=== PATIENT | female | born 1995 | race African-American/Black ===

== ENCOUNTER 2019-12-30 13:10 | Outpatient (CLI) | payer OTHER ==
[2019-12-30 14:00] VITALS: BP 112/58
--- NOTE | 2019-12-30 14:00 | SLEEP CARE CONSULTATION ---
Information from patient questionnaire entered by Ellie Salazar. I have reviewed and concur with the information entered by Ellie Salazar. This document represents the service I personally performed and the decisions made by , Archana Sullivan ARNP. History of Present Illness Service Date and Time: 12/30/2019 1310 Reason for Visit: New patient Chief Complaint: reports: Unrefreshed sleep, Snoring, Excessive daytime sleepiness, Observed pauses in breathing, Fatigue. denies: Insomnia, Frequent awakenings at night, Other Date of Onset: 5 years Usual bedtime: 9 PM Time it takes to fall asleep: 1 hour Snores at night: Yes Observed to quit breathing while asleep: Yes Sleeps alone due to snoring: No Number of times waking at night: 2 Reasons for waking at night: reports: Snoring, Bathroom. denies: Choking, Gasping for air Toss, Turn, or Twitch while sleeping: Yes Recalls having dreams: Yes Usually gets out of bed at: [id number] Feels refreshed in the morning: No Morning headache: No Sleepy or fatigued during the day: Yes Additional HPI information: I had the pleasure of seeing IVAN DENG today regarding the possibility of her having a sleep disorder. Her current complaints are snoring, unrefreshed sleep, having pauses in breathing, excessive daytime sleepiness and fatigue. She is 7 months at this time. She has had anemia during the . She has a history of anxiety and depression. There is somniloquy (sleep talking) but no somnambulism (sleep walking). She has never experienced sleep paralysis, cataplexy, or symptoms of restless leg syndrome. - Parasomnia Symptoms Ever been unable to move upon waking from sleep: No Walks in sleep: No Talks in sleep: Yes Ever acted out dreams in sleep: Yes Ever felt weak in the knees when startled or emotional: No Bothered by creepy, crawly, restless sensations in legs: No Problems with memory or concentration: Yes (daily) Subjective Initial Fielding Sleepiness Scale score: 16 Past Medical History Past Medical History: reports: Anemia ( induced), Anxiety, Asthma (seasonal), Depression, Mood disorder (borderline personality disorder), GERD (acid reflux depending on diet). denies: Hypertension, Claustrophobia, Congestive Heart Failure, Diabetes, Stroke, Coronary Heart Disease, Arrythmia, Hypothyroidism, Attention deficit Social History The patient's occupation is a [employer]. Patient is and lives in . Have you smoked in the past 12 months: No Alcohol use: No Caffeine use: Yes Caffeine amount and frequency: tea, two cups a day Family History Family history of sleep disordered breathing: No Allergies and Home Medications Drug allergies reviewed: Yes (NKDA) Home medication list reviewed: Yes ( vitamins, iron supplements, flonase, loratidine) Review of Systems Cardiovascular: denies: high blood pressure, palpitations, chest pain, irregular heart rate or pulse, leg or foot swelling Respiratory: denies: shortness of breath, wheeze, chronic cough Gastrointestinal: reports: heartburn. denies: difficulty swallowing Neurological: denies: headaches, seizure, head trauma, speech dysfunction, gait or balance problems, fainting or unconsciousness Psychiatric: reports: anxiety, depression, mood disorder. denies: Attention Def icit Hyperactivity, claustrophobia Ear/Nose/Throat: reports: nasal congestion, sinus problems. denies: nose bleeds, dry mouth/throat, hoarseness, injury to nose, tonsillectomy, wisdom teeth removed Endocrine: denies: thyroid disease Musculoskeletal: denies: muscle pain or cramping, mobility problems Immunologic: reports: allergies to food or environment (seasonal) Physical Exam Blood Pressure: 112/58 Cuff size: long Heart Rate: 110 O2 Saturation: 99 Height: 5 ft 4 in Weight: 225 lb 9.6 oz Body Mass Index: 38.7 BMI Classification: Obese Neck circumference: 14 (inches) HEENT: No craniofacial malformation Nostrils: patent to airflow Turbinates: swollen Septum: midline Mouth and throat: normal Soft palate: normal Hard palate: normal Uvula: normal Uvula visualization: 100% Mallampati Class I Tongue: normal in size Tonsils: small Chin and jaw: normal size and position Neck: normal w/o lymphadenopathy or thyromegaly Heart: regular rate and rhythm Lungs: clear bilaterally Abdomen: soft, non-tender Extremities: no edema or clubbing Neurologic: intact, no focal deficits Impression and Plan 1. Suspected Obstructive Sleep Apnea-Hypopnea Syndrome, as suggested by a history of loud and irregular snoring, observed cessation of breath while asleep, fatigue, unrefreshed sleep, cognitive impairment, and excessive daytime sleepiness. Narrow oropharynx and obesity are common predisposing factors for obstructive sleep apnea-hypopnea syndrome. I recommend proceeding to polysomnography to confirm the diagnosis and to assess severity. If the patient has significant sleep disordered breathing, a manual CPAP titration study will also be performed to find the optimal treatment pressure. I informed the patient of what the sleep studies involve and after some discussion, obtained agreement to proceed. The pathophysiology of obstructive sleep apnea-hypopnea syndrome was discussed with the patient and health risks of cardiovascular and cerebrovascular disease if not treated. AAS brochure for obstructive sleep apnea-hypopnea syndrome given and reviewed. Risks of drowsy driving discussed in detail and patient advised to avoid long distance driving and to manager discovery at the first sign of drowsiness. Patient agreed to plan. * Schedule polysomnography +- manual CPAP titration study. * Avoid long distance driving or driving when feeling sleepy. * Avoid sedative and muscle relaxant around bedtime. * Attempt to lose weight. * Review instructions provided by trained office staff on how to prepare for the sleep study. * Return for follow-up after sleep study completed. Visit Type: In Office Time Spent with Patient (minutes): 35 Provider Statement: I spent 100% of the Face to Face Visit with the patient with greater than 50% spent counseling the patient and coordination of care.
== END 2019-12-30 13:11 | disposition home or self-care (01) ==
LOC: SC 13:10
PROVIDERS: ATTEND Nurse Practitioner Family
DX: O99.350 Diseases of the nervous system complicating pregnancy, unspecified trimester (principal); G47.10 Hypersomnia, unspecified; G47.8 Other sleep disorders; R06.83 Snoring; R06.81 Apnea, not elsewhere classified; E66.9 Obesity, unspecified
CPT/HCPCS: 99204; 99212

== ENCOUNTER 2020-01-21 19:32 | Outpatient (CLI) | payer OTHER | END 2020-01-21 19:33 | disposition home or self-care (01) | LOC: SC 19:32 | PROVIDERS: ATTEND Nurse Practitioner Family | DX: R06.83 Snoring (principal); R00.0 Tachycardia, unspecified; G47.10 Hypersomnia, unspecified; R53.83 Other fatigue; G47.8 Other sleep disorders; R06.81 Apnea, not elsewhere classified | CPT/HCPCS: 95810 ==

== ENCOUNTER 2020-02-03 09:37 | Outpatient (CLI) | payer OTHER ==
[2020-02-03 10:00] VITALS: BP 119/78
[2020-02-03] MEDS ORDERED: LACTATED RINGERS 1,000 ML IV SCH (11:00)
[2020-02-03] MEDS ORDERED: FERRIC GLUCONATE 125 MG in SODIUM CHLORIDE 0.9% 100ML 100 ML IV SCH (11:00)
--- NOTE | 2020-02-03 13:45 | Ultrasound Report ---
PROCEDURE: OB F/U or Repeat INDICATIONS: Decreased movement, reported history of pyelectasis. Maternal anemia. OUTSIDE/PRIOR DATING DATA: Last menstrual period (LMP): Unsure. First dating scan (date and location): Not available. TECHNIQUE: Real-time scanning was performed of the fetus, with image documentation and biometric harsha surements. Biophysical profile was also obtained. COMPARISON: None available. FINDINGS: General: A single living intrauterine gestation is present. Presentation: Vertex Placenta: Placental position is posterior fundal, without previa. Amniotic fluid index: 13.6 cm, within normal limits for gestational age. heart rate: 153 beats per minute. Maternal cervical canal: 4.5 cm long; normal length is 2.5 cm or more. biometrics: Biparietal diameter: 8.8 cm, 35 weeks 3 days Head circumference: 32.3 cm, 36 weeks 4 days Abdominal circumference: 30.4 cm, 34 weeks 2 days Femur length: 6.9 cm, 35 weeks 2 days Estimated gestational age from initial scan: not available. Composite gestational age from present scan: 35 weeks 2 days Estimated weight and percentile: 2554 g Measurement variability in biometric dating: +/- 10 days from 12-20 weeks gestation, +/- 2 weeks from 20-30 weeks gestation, +/- 3 weeks at 30 weeks gestation or later. Miscellaneous: No definite hydronephrosis of the kidneys. Biophysical profile: Tone: 2 points. Movement: 2 points. Respiration: 2 points. Largest pocket of fluid: 6.5 cm, 2 points. Umbilical artery Doppler: Doppler interrogation at the cord insertion and in the mid umbilical artery demonstrates preserved diastolic flow with systolic/diastolic ratios of 2.4-2.6. The umbilica l artery was not well visualized at the placental insertion. IMPRESSION: 1. Single living intrauterine in vertex position with composite gestational age of 35 weeks 2 days. Evaluation of estimated weight percentile is limited in the absence of available prior imaging or LMP. 2. Biophysical profile score of 8/8. 3. Umbilical artery Doppler within normal limits with preserved diastolic flow. The umbilical artery was not well evaluated at the placental insertion. 4. No definite hydronephrosis. Reviewed by: Richard Carvalho MD on 02/03/2020 1:44 PM PDT Approved by: Richard Carvalho MD on 02/03/2020 1:44 PM PDT Station ID: [id number]
--- NOTE | 2020-03-01 15:13 | PROCEDURE REPORT ---
- HPI Diagnosis/Indication for NST: Other (Maternal anemia) Current EDU 03/20/20 Gestation 33 Weeks and 3 Days 1 Para 0 Vital Signs Temperature 98.4 F 02/03/20 09:59 Heart Rate 95 02/03/20 09:59 Respiratory Rate 18 02/03/20 09:59 Blood Pressure 119/78 02/03/20 09:59 O2 Saturation 99 02/03/20 09:59 Temperature 98.4 F 02/03/20 09:59 Heart Rate 95 02/03/20 09:59 Respiratory Rate 18 02/03/20 09:59 Blood Pressure 119/78 02/03/20 09:59 O2 Saturation 99 02/03/20 09:59 - NST Procedure NST Procedure Start Date 02/03/20 Start Time 09:47 Stop Time 10:53 Vibroacoustic Stimulation Used No Patient States Movement Yes: Pt not sure if mvmt meets criteria - Results and Plan Findings/Impression: Category 1 NST Plan: IV iron transfusion
== END 2020-02-03 13:00 | disposition home or self-care (01) ==
LOC: WFO 09:37 → FBP 09:41 → WFO 13:00
PROVIDERS: ATTEND Obstetrics & Gynecology
DX: O99.013 Anemia complicating pregnancy, third trimester (principal); D64.9 Anemia, unspecified; O36.8130 Decreased fetal movements, third trimester, not applicable or unspecified; Z3A.33 33 weeks gestation of pregnancy
CPT/HCPCS: 76816; 96365; 99214; J2916

== ENCOUNTER 2020-02-07 09:47 | Outpatient (CLI) | payer OTHER | END 2020-02-07 09:48 | disposition home or self-care (01) | LOC: SC 09:47 | PROVIDERS: ATTEND Internal Medicine Pulmonary Disease | DX: Z53.9 Procedure and treatment not carried out, unspecified reason (principal) ==

== ENCOUNTER 2020-02-15 12:26 | Outpatient (CLI) | payer OTHER | END 2020-02-15 12:27 | disposition home or self-care (01) | LOC: LAB 12:26 | PROVIDERS: ATTEND Obstetrics & Gynecology | DX: O99.013 Anemia complicating pregnancy, third trimester (principal); D64.9 Anemia, unspecified; Z3A.00 Weeks of gestation of pregnancy not specified | CPT/HCPCS: 36415; 81599; 83021; 85014; 85018; 85041 ==

== ENCOUNTER 2020-02-16 08:00 | Outpatient (CLI) | payer OTHER ==
[2020-02-16 19:05] LABS: MEAN CORPUSCULAR HEMOGLOBIN 24.3 pg (27.0-31.0); MEAN CORPUSCULAR HGB CONC 28.7 g/dL (32.0-36.0); MEAN CORPUSCULAR VOLUME 84.8 fL (81.0-99.0); MEAN PLATELET VOLUME 10.3 fL (7.9-10.8); RED BLOOD COUNT 3.29 10^6/uL (4.20-5.40); RED CELL DISTRIBUTION WIDTH 18.4 % (12.0-15.0); WHITE BLOOD COUNT 7.9 x10^3/uL (4.8-10.8)
[2020-02-16 19:15] LABS: % IRON SATURATION 5 % (20-50); IRON 38 ug/dL (28-170); TOTAL IRON BINDING CAPACITY 742 ug/dL (250-450); TRANSFERRIN 530 mg/dL (192-382)
== END 2020-02-16 23:59 | disposition home or self-care (01) ==
LOC: LAB.WCP 08:00
PROVIDERS: ATTEND Obstetrics & Gynecology
DX: O99.019 Anemia complicating pregnancy, unspecified trimester (principal)
CPT/HCPCS: 36415; 82728; 83540; 84466; 85027

== ENCOUNTER 2020-02-22 07:00 | Outpatient (CLI) | payer OTHER | END 2020-02-22 23:59 | disposition home or self-care (01) | LOC: LAB.R 07:00 | PROVIDERS: ATTEND Nurse Practitioner Obstetrics & Gynecology | DX: Z36.85 Encounter for antenatal screening for Streptococcus B (principal) | CPT/HCPCS: 87797 ==

== ENCOUNTER 2020-02-22 13:30 | Outpatient (CLI) | payer OTHER ==
[2020-02-22] MEDS ORDERED: FERRIC GLUCONATE 125 MG in SODIUM CHLORIDE 0.9% 100ML 100 ML IV ONE (14:15)
[2020-02-22 14:19] VITALS: BP 109/61
--- NOTE | 2020-02-26 13:07 | PROCEDURE REPORT ---
- HPI Diagnosis/Indication for NST: Other (Maternal anemia of ) Current EDU 03/20/20 Gestation 36 Weeks and 1 Days 1 Para 0 Vital Signs Temperature 36.4 C L 02/22/20 14:17 Heart Rate 95 02/22/20 14:17 Respiratory Rate 16 02/22/20 14:17 Blood Pressure 109/61 02/22/20 14:17 O2 Saturation 98 02/22/20 14:17 Temperature 36.4 C L 02/22/20 14:17 Heart Rate 95 02/22/20 14:17 Respiratory Rate 16 02/22/20 14:17 Blood Pressure 109/61 02/22/20 14:17 O2 Saturation 98 02/22/20 14:17 - NST Procedure NST Procedure Start Date 02/22/20 Start Time 13:45 Stop Time 14:19 Vibroacoustic Stimulation Used No Patient States Movement Yes - Results and Plan Findings/Impression: NST performed date: 02/22/2020 NST read date: 02/22/2020 NST interpretation: Cat I, meets criteria for reactivity Baseline 135, accels, no decels, moderate variability Final diagnosis: 25yo at 36.1wks gestation presents with severe mate rnal anemia requiring iron infusion Plan: continue NSTs with iron infusions f/u in office for scheduled visit or sooner PRN
== END 2020-02-22 15:45 | disposition home or self-care (01) ==
LOC: WFO 13:30 → FBP 13:31 → WFO 15:45
PROVIDERS: ATTEND Nurse Practitioner Obstetrics & Gynecology
DX: O99.013 Anemia complicating pregnancy, third trimester (principal); D64.9 Anemia, unspecified; Z36.85 Encounter for antenatal screening for Streptococcus B; Z3A.36 36 weeks gestation of pregnancy
CPT/HCPCS: 59025; 87797; 96374; J2916

== ENCOUNTER 2020-02-29 09:36 | Outpatient (CLI) | payer OTHER ==
[2020-02-29] MEDS: SODIUM CHLORIDE FLUSH 0.9% 10 ML SYRINGE IVP PRN ×2 (10:24→11:41)
[2020-02-29] MEDS ORDERED: FERRIC GLUCONATE 125 MG in SODIUM CHLORIDE 0.9% 100ML 100 ML IV ONE (10:30)
[2020-02-29 10:48] VITALS: BP 130/83
--- NOTE | 2020-02-29 11:28 | PROVIDER PROGRESS NOTE ---
- HPI Chief Complaint: Other Current : Current EDU 03/20/20 Gestation 37 Weeks and 1 Days 1 Para 0 Vital Signs Temperature 37.4 C 02/29/20 10:46 Heart Rate 110 H 02/29/20 10:46 Respiratory Rate 16 02/29/20 10:46 Blood Pressure 130/83 H 02/29/20 10:46 Temperature 37.4 C 02/29/20 10:46 Heart Rate 110 H 02/29/20 10:46 Respiratory Rate 16 02/29/20 10:46 Blood Pressure 130/83 H 02/29/20 10:46 O2 Saturation - Procedures OB Procedure Performed: NST Diagnosis/Indication for NST: Other NST Procedure: NST Procedure Start Time 10:45 Stop Time 11:19 Service Date of procedure: 02/29/20 - Plan Plan: NST performed date: 02/29/2020 NST read date: 02/29/2020 Start time 1046 Stop time 1114 NST interpretation: Cat I, meets criteria for reactivity Baseline 140, accels, no decels, moderate variability 25yo at 37.1wks gestation presents with severe maternal anemia requiring iron infusion Pt tolerated infusion well. Plan: continue NSTs with iron infusions f/u in office for scheduled visit or sooner PRN FINAL DIAGNOSIS: Anemia complicated
== END 2020-02-29 11:45 | disposition home or self-care (01) ==
LOC: WFO 09:36 → FBP 09:37 → WFO 11:45
PROVIDERS: ATTEND Nurse Practitioner Obstetrics & Gynecology
DX: O99.013 Anemia complicating pregnancy, third trimester (principal); Z3A.37 37 weeks gestation of pregnancy
CPT/HCPCS: 96365; J2916

== ENCOUNTER 2020-03-01 14:12 | Outpatient (CLI) | payer OTHER ==
[2020-03-01 14:26] VITALS: BP 138/85
--- NOTE | 2020-03-01 15:00 | PROVIDER PROGRESS NOTE ---
- HPI Chief Complaint: Labor Check Current : Current EDU 03/20/20 Gestation 37 Weeks and 2 Days 1 Para 0 Vital Signs Temperature 37.4 C 03/01/20 14:22 Heart Rate 119 H 03/01/20 14:22 Respiratory Rate 20 03/01/20 14:22 Blood Pressure 138/85 H 03/01/20 14:22 O2 Saturation 100 03/01/20 14:22 Temperature 37.4 C 03/01/20 14:22 Heart Rate 119 H 03/01/20 14:22 Respiratory Rate 20 03/01/20 14:22 Blood Pressure 138/85 H 03/01/20 14:22 O2 Saturation 100 03/01/20 14:22 - Procedures OB Procedure Performed: NST Diagnosis/Indication for NST: Other NST Procedure: NST Procedure Start Time 13:45 Stop Time 14:19 Service Date of procedure: 03/01/20 - Plan Plan: S: Jenni presents to [facility] @ 37.2 wks gestation with c/o vaginal bleeding whic h started this morning. She states she had intercourse last night and when she woke up this morning she noticed what she describes as a moderate amount of bright red bleeding after urinating. She denies pain with intercourse. She denies leakage of fluid and she reports +FM. She reports occasional contractions but nothing overly uncomfortable or consistent. She denies urinary symptoms. She reports regular bowel movements with normal consistency and denies constipation. O: FHR Baseline 135, moderate variability, + accels, no decels 1 contractions appreciated via tocometry. Pt did feel contraction but was able to talk through the contraction with ease. SVE fingertip/thick/high, posterior, vertex No bleeding noted upon examination. Abdomen gravid, soft, nontender A: 25yo @ 37.2wks gestation by LMP c/w 8.6wk U/S Vaginal bleeding in , third trimester FHR Category I NST performed 03/01/2020 NST read 03/01/2020 NST reactive: baseline 135, moderate variability, + accels, no decels 11/01/2019 FAS revealed posterior placenta without evidence of previa. Abdomen soft and nontender. P: Discussed bleeding likely related to recent intercourse. Pt released home with precautions. Pt feels reassured. Pt released home with precautions. Advised to return if bleeding continues. Pt verbalized understanding and agrees to above plan. She denies further questions or concerns at this time.
== END 2020-03-01 15:00 | disposition home or self-care (01) ==
LOC: WFO 14:12 → FBP 14:14 → WFO 15:00
PROVIDERS: ATTEND Nurse Practitioner Obstetrics & Gynecology
DX: O46.93 Antepartum hemorrhage, unspecified, third trimester (principal); Z3A.37 37 weeks gestation of pregnancy
CPT/HCPCS: 99213

== ENCOUNTER 2020-03-07 09:33 | Outpatient (CLI) | payer OTHER ==
[2020-03-07 10:26] VITALS: BP 140/89
[2020-03-07] MEDS ORDERED: FERRIC GLUCONATE 125 MG in SODIUM CHLORIDE 0.9% 100ML 100 ML IV ONE (10:45)
== END 2020-03-07 12:00 | disposition home or self-care (01) ==
LOC: WFO 09:33 → FBP 09:37 → WFO 12:00
PROVIDERS: ATTEND Nurse Practitioner Obstetrics & Gynecology
DX: O99.019 Anemia complicating pregnancy, unspecified trimester (principal); D64.9 Anemia, unspecified; O99.891 Other specified diseases and conditions complicating pregnancy; R03.0 Elevated blood-pressure reading, without diagnosis of hypertension; Z3A.00 Weeks of gestation of pregnancy not specified
CPT/HCPCS: 36415; 80053; 82570; 84156; 84550; 85027; 96365; J2916

== ENCOUNTER 2020-03-07 12:14 | Outpatient (CLI) | payer OTHER ==
[2020-03-07 12:41] LABS: HGB - HEMOGLOBIN 8.1 g/dL (12.0-16.0); MEAN CORPUSCULAR HEMOGLOBIN 24.3 pg (27.0-31.0); MEAN CORPUSCULAR HGB CONC 29.2 g/dL (32.0-36.0); MEAN CORPUSCULAR VOLUME 83.2 fL (81.0-99.0); MEAN PLATELET VOLUME 9.4 fL (7.9-10.8); RED BLOOD COUNT 3.33 10^6/uL (4.20-5.40); RED CELL DISTRIBUTION WIDTH 20.1 % (12.0-15.0); WHITE BLOOD COUNT 7.2 x10^3/uL (4.8-10.8)
[2020-03-07 12:54] LABS: ALBUMIN 2.7 g/dL (3.2-5.5); ALBUMIN/GLOBULIN RATIO 0.8 (1.0-2.2); BILIRUBIN,TOTAL 0.5 mg/dL (0.2-1.0); CALCIUM 9.2 mg/dL (8.5-10.3); CREATININE 0.6 mg/dL (0.4-1.0); TOTAL PROTEIN 6.3 g/dL (6.7-8.2); URIC ACID 4.8 mg/dL (2.6-7.2)
[2020-03-07 13:10] LABS: CREATININE,URINE 33.3 mg/dL
[2020-03-07 13:16] LABS: TOTAL PROTEIN,URINE TIMED < 6 mg/dL
== END 2020-03-07 12:15 | disposition home or self-care (01) ==
LOC: LAB 12:14
PROVIDERS: ATTEND Nurse Practitioner Obstetrics & Gynecology
DX: R03.0 Elevated blood-pressure reading, without diagnosis of hypertension (principal)
CPT/HCPCS: 36415; 80053; 82570; 84156; 84550; 85027

== ENCOUNTER 2020-03-18 20:02 | Outpatient (CLI) | payer OTHER ==
[2020-03-18 20:14] VITALS: BP 143/89
--- NOTE | 2020-03-18 20:19 | PROVIDER PROGRESS NOTE ---
- HPI Chief Complaint: Decreased movement Current : Vital Signs Temperature 37.6 C H 03/18/20 20:13 Heart Rate 110 H 03/18/20 20:13 Respiratory Rate 20 03/18/20 20:13 Blood Pressure 143/89 H 03/18/20 20:13 O2 Saturation 100 03/18/20 20:13 Temperature 37.6 C H 03/18/20 20:13 Heart Rate 110 H 03/18/20 20:13 Respiratory Rate 20 03/18/20 20:13 Blood Pressure 143/89 H 03/18/20 20:13 O2 Saturation 100 03/18/20 20:13 - Procedures OB Procedure Performed: NST Diagnosis/Indication for NST: Decreased movement NST Procedure: NST Procedure Start Time 13:45 Stop Time 14:19 Service Date of procedure: 03/18/20 - Plan Plan: S: Jenni presents today with partner Ugo @ 39.5wks gestation with c/o decreased movement. She states she felt the baby move last night and reports her most active time is around 11:00pm at night. She reports today she slept in throughout the morning and since waking she has not felt the baby move for the past 8 hours. She denies vaginal bleeding, leakage of fluid or contractions. She denies RAMEY, visual disturbances, RUQ or epigastric pain. O: FHR baseline 140, moderate variability, + accels, no decels No contractions appreciated via tocometry Abdomen gravid, soft, nontender. NST performed 03/18/2020 NST read 03/18/2020 NST reactive. FHR baseline 140s, moderate variability, + accels, no decels Pt given orange juice to drink and states she has begun to feel slight movement and feels reassured. A: 25yo @ 39.5wks gestation by LMP c/w 8.6 wk U/S Decreased movement FHR category I P: Pt released home with precautions. Reviewed parameters for movements and advised daily kick counts. Keep f/u appt later this week or return sooner PRN. Pt feels very reassured. She verbalized understanding and agrees to above plan. She denies further questions or concerns at this time.
== END 2020-03-18 21:00 | disposition home or self-care (01) ==
LOC: WFO 20:02 → FBP 20:03 → WFO 21:00
PROVIDERS: ATTEND Nurse Practitioner Obstetrics & Gynecology
DX: O36.8130 Decreased fetal movements, third trimester, not applicable or unspecified (principal); Z3A.39 39 weeks gestation of pregnancy
CPT/HCPCS: 99212

== ENCOUNTER 2020-03-27 07:57 | Inpatient (IN) | payer OTHER ==
[2020-03-27] MEDS ORDERED: OXYTOCIN/SODIUM CHLORIDE 500 ML IV PRN (08:24)
[2020-03-27] MEDS ORDERED: LIDOCAINE-MPF 1% 30 ML VIAL ID PRN (08:24)
[2020-03-27] MEDS ORDERED: miSOPROStoL 200 MCG TABLET BC PRN (08:24)
[2020-03-27] MEDS ORDERED: SODIUM CHLORIDE FLUSH 0.9% 10 ML SYRINGE IVP PRN (08:24)
[2020-03-27] MEDS ORDERED: TRANEXAMIC ACID 1,000 MG in SODIUM CHLORIDE 0.9% 100ML 100 ML IV PRN (08:24)
[2020-03-27] MEDS ORDERED: OXYTOCIN 10 UNIT/ML VIAL IM PRN (08:24)
[2020-03-27] MEDS ORDERED: CARBOPROST TROMETHAMINE 250 MCG/ML AMP IM PRN (08:24)
[2020-03-27] MEDS ORDERED: METHYLERGONOVINE 0.2 MG/ML VIAL IM PRN (08:24)
[2020-03-27] MEDS ORDERED: ONDANSETRON 4 MG/2 ML VIAL IVP PRN (08:24)
--- NOTE | 2020-03-27 08:59 | PROVIDER PROGRESS NOTE ---
Labor Progress Note - Uterine Monitoring Uterine Monitoring Mode: positive: External toco Contraction Frequency (min/apart): 5-6 Contraction Intensity: positive: Mild Uterine Resting Tone: positive: Soft - Monitoring Monitor Mode: positive: External ultrasound Heart Rate Baseline: 140 Heart Rate Variability: positive: Moderate (6-25 bmp) Accelerations: positive: Present, 15x15 Decelerations: positive: None Strip Review: positive: Category I - Vaginal Exam Dilation (in cm): 3 Effacement (%): 50 Station: -3 Cervical Position: Posterior - Labor Progress Note Labor Progress Note/Additional Text: S: Pt reports feeling well. She states she was able to sleep last night but is anxious to have a baby and excited to get the process moving forward. She denies vaginal bleeding or leakage of fluid. She denies being able to feel any of the contractions that are visible on tocometry. She denies cramping and reports +FM. She denies RAMEY, visual disturbances, RUQ or epigastric pain. She denies feeling lightheaded or dizzy. O: FHR basleine 140s, moderate variability, + accels, no decels Contractions palpate mild every 5-6 minutes with soft resting tone - pt unable to appreciate contractions. SVE 3/50/-3, posterior, medium consistency. Vertex. Membranes intact A: 25yo @ 41.0wks gestation by LMP c/w initial ultrasound Postdates FHR Category I GBS negative P: 50mcg BC misoprostol q 4 hours for pre-induction cervical ripening Continuous monitoring Encouraged ambulation and position changes. Jacuzzi PRN. Nitrous oxide PRN. Reviewed plan of care with pt, , and RN at the bedside who are all in agreement with above plan and deny questions or concerns at this time.
[2020-03-27] MEDS ORDERED: SODIUM CHLORIDE FLUSH 0.9% 10 ML SYRINGE IVP SCH (09:00)
[2020-03-27 09:10] LABS: BASOPHILS % (AUTO) 0.4 %; EOSINOPHILS # (AUTO) 0.2 10^3/uL (0.0-0.7); EOSINOPHILS % (AUTO) 1.9 %; HGB - HEMOGLOBIN 8.7 g/dL (12.0-16.0); LYMPHOCYTES # (AUTO) 2.1 10^3/uL (1.5-3.5); LYMPHOCYTES % (AUTO) 27.1 %; MEAN CORPUSCULAR HEMOGLOBIN 23.6 pg (27.0-31.0); MEAN CORPUSCULAR HGB CONC 29.1 g/dL (32.0-36.0); MEAN CORPUSCULAR VOLUME 81.3 fL (81.0-99.0); MEAN PLATELET VOLUME 9.4 fL (7.9-10.8); MONOCYTES % (AUTO) 13.1 %; NEUTROPHILS # (AUTO) 4.5 10^3/uL (1.5-6.6); PLT - PLATELET COUNT 204 10^3/uL (130-450); RED BLOOD COUNT 3.68 10^6/uL (4.20-5.40); WHITE BLOOD COUNT 7.9 x10^3/uL (4.8-10.8)
[2020-03-27] MEDS: miSOPROStoL 100 MCG TABLET BC SCH ×2 (09:24→13:21)
--- NOTE | 2020-03-27 13:12 | HISTORY & PHYSICAL EXAMINATION ---
Admit History - Visit Reason Visit Reason: Other - : 1 Parity: 0 Premature: 0 Ectopic: 0 : 0 Care: positive: [facility] Risk/History: positive: None Complications This : positive: None Smoking Status: Never smoker - Mother's Labs Mother's Blood Type: positive: A Mother's RH: positive: Positive GBS: positive: Group B Step Negative Rubella Status: positive: Immune Meds/Allgy - Allergies Allergies/Adverse Reactions: Allergies Allergy/AdvReac Type Severity Reaction Status Date / Time No Known Drug Allergies Allergy Verified 03/07/20 10:17 Review of Systems - Constitutional Constitutional: denies: Fatigue, Fever, Chills, Malaise - Eyes Eyes: denies: Blurred vision, Spots in vision, Dipolpia - Cardiovascular Cariovascular: denies: Chest pain, Edema - Respiratory Respiratory: denies: Cough, SOB at rest - Gastrointestinal Gastrointestinal: denies: Change in bowel habits - Integumentary Integumentary: denies: Rash, Pruritis - Neurological Neurological: denies: Headache, Dizziness Physical - Abdominal Exam Vital Signs: Temp Pulse Resp BP Pulse Ox 36.8 C 103 H 16 117/61 100 03/27/20 12:58 03/27/20 12:58 03/27/20 12:58 03/27/20 12:58 03/27/20 12:58 Contraction Frequency (min/apart): 3-8 Contraction Intensity: positive: Mild Uterine Resting Tone: positive: Soft - Monitoring Heart Rate Baseline: 140 Strip Review: positive: Category I - Presentation Presentation: positive: Vertex - Vaginal Exam Membranes: positive: Membranes intact Dilation (in cm): 3 Effacement (%): 50 Station: positive: -3 Cervical Position: positive: Posterior - Speculum Exam Speculum Exam Performed: positive: No Plan for Labor - Plan For Labor I expect patient to be DC'd or transferred within 96 hours.: Yes Plan for Labor: HPI: This 25yo @ 41.0wks gestation by LMP c/w 8.6wk U/S presented to [facility] on 03/27/2020 at 0800 for post-dates induction of labor. She denies vaginal bleeding or leakage of fluid. Denies contractions and reports +FM. She states she is feeling well and denies concerns to complaints today. States she is ready to have a baby. Her is supportive at the bedside. She has been a patient of [facility] since her transfer of care from [facility] at 35.1wks gestation. Her has been complicated by anemia complicating and she is has received 3 IV iron transfusions in the third trimester which have improved her Hgb/Hct slightly. She reports feeling improvement in degree of fatigue and feeling better overall following her iron transfusions. Her FAS revealed persistent right renal pyelectasis. In addition, she was diagnosed with C.diff 01/26/2020 and was treated with Vancomycin x 10 days with resolution of symptoms. Dating criteria: LMP 05/28/2019 Initial ultrasound at 8.6wks c/w LMP dating Serial exams - agree OB Hx: G1: Current Medications: PNV, FeSO4, Claratin PRN; albuterol inhalor PRN Allergies: Soy (Critical) PMHx: Obesity, iron deficiency anemia, asthma Surgical Hx: LSC appy, not ruptured Social Hx: Former smoker. No ETOH or IVDA. 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 Family Hx: Heart disease- PGM, Father; HTN - PGM, Father; Diabetes - Father, PGM course: Initial U/S: 08/15/2019 @ 8.6wks c/w LMP dating A pos/Rubella immune SEVERE ANEMIA - IV Fe transfusion x 3. 08/23/2019 H/H: 11.8/35.1 12/28/2019 H/H: 7.6/24.5 12/30/2019 H/H 7.9/25.5 01/24/2020 H/H 7.5/24.7 02/16/2020 H/H 8.0/27.9 03/07/2020 H/H 8.1/27.7 03/27/2020 H/H 8.7/29.9 12/30/2019 Iron 41 TIBC 556 01/24/2020 Iron 32, TIBC 549 02/16/2020 Iron 38, TIBC 742 12/12/2019 COVID - neg VZV: immune Genetic testing: Quad screen neg; CF neg FAS: 11/01/2019 WNL with the exception of mild right renal pyelectasis (4.5mm). Posterior placenta, no previa. 3VC. JOSE WNL. Size c/w dating. 02/23/2020 Growth and JOSE (EFW 3933g, 86th percentile; JOSE 17). Of note, right renal pyelectasis persists Glucola 116 Influenza: 02/15/2020 TDAP : 01/02/2020 GBS at 36.1wks- negative HSV: denies self and partner Breast pump Rx: obtained MOD: Anticipate . Baby GIRL:Elena. Partner- Christopher pp contraception: IUD(Mirena vs Paragard? aware needs new referral) or POPs pap: 08/15/2019 Physical Exam: Normocephalic, atraumatic Heart RRR w/o M/G/R Lungs CTAB Abdomen gravid, soft, nontender EFW 4000g SVE 3/50/-3, posterior, medium. Vertex. Membranes intact FHR baseline 140s, moderate variability, + accels, no decels Contractions palpate mild every 3-8 minutes with soft resting tone - pt does not appreciate contractions Bilateral LE's no edema Mood is good. Assessment: 25yo @ 41.0wks gestation Post-dates Severe anemia- type and cross matched with 2 units held back - ready GBS negative Plan: Pre-induction cervical ripening with 50mcg BC misoprostol q 4 hours Continuous monitoring Encouraged ambulation and position changes. Jacuzzi PRN. Nitrous oxide PRN. Epidural per maternal request. Anticipate . Reviewed plan of care with pt, , and labor RN at the bedside who are all in agreement and verbalized understanding. They all deny questions or concerns at this time.
--- NOTE | 2020-03-27 17:49 | PROVIDER PROGRESS NOTE ---
Labor Progress Note - Uterine Monitoring Contraction Frequency (min/apart): 2-4 Contraction Intensity: positive: Mild to moderate Uterine Resting Tone: positive: Soft - Monitoring Monitor Mode: positive: External ultrasound Heart Rate Baseline: 150 Heart Rate Variability: positive: Moderate (6-25 bmp) Accelerations: positive: Present, 15x15 Decelerations: positive: None Strip Review: positive: Category I - Vaginal Exam Dilation (in cm): 4 Effacement (%): 50 Station: -3 Cervical Position: Posterior - Labor Progress Note Labor Progress Note/Additional Text: S: Feeling slight/occasional discomfort with contractions. Some bloody show on the towel when she got up to the bathroom. Reports +FM. supportive at the bedside. O: FHR baseline 150, moderate variability, + accels, no decels Contractions palpate moderate every 2-4 minutes with soft resting tone S/p 2 doses of 50mcg BC misoprostol SVE 4/50/-3, posterior, soft. Vertex. AROM large amount of clear fluid A: 25yo @ 41.0wks gestation Post-dates - medical induction of labor secondarily FHR Category I GBS negative P: D/C misoprostol as cervical ripening has been achieved. Expectant managment x 4 hours - considering pitocin for augmentation in 4 hours. Continuous monitoring Jaccuzzi PRN. Nitrous oxide PRN. Epidural per maternal request. Anticipate . Reviewed plan of care with pt, partner at the bedside, and labor RN at the bedside who are all in agreement with above plan and deny questions or concerns at this time.
[2020-03-27 19:31] LABS: BASOPHILS % (AUTO) 0.2 %; EOSINOPHILS # (AUTO) 0.2 10^3/uL (0.0-0.7); EOSINOPHILS % (AUTO) 2.5 %; HGB - HEMOGLOBIN 8.8 g/dL (12.0-16.0); LYMPHOCYTES # (AUTO) 2.1 10^3/uL (1.5-3.5); LYMPHOCYTES % (AUTO) 24.9 %; MEAN CORPUSCULAR HEMOGLOBIN 23.8 pg (27.0-31.0); MEAN CORPUSCULAR HGB CONC 29.7 g/dL (32.0-36.0); MEAN PLATELET VOLUME 9.5 fL (7.9-10.8); MONOCYTES # (AUTO) 1.3 10^3/uL (0.0-1.0); NEUTROPHILS # (AUTO) 4.6 10^3/uL (1.5-6.6); NEUTROPHILS % (AUTO) 55.6 %; PLT - PLATELET COUNT 206 10^3/uL (130-450); RED CELL DISTRIBUTION WIDTH 19.9 % (12.0-15.0); WHITE BLOOD COUNT 8.3 x10^3/uL (4.8-10.8)
[2020-03-27 19:41] LABS: ALBUMIN 2.9 g/dL (3.2-5.5); ALBUMIN/GLOBULIN RATIO 0.7 (1.0-2.2); BILIRUBIN,TOTAL 0.6 mg/dL (0.2-1.0); CALCIUM 8.9 mg/dL (8.5-10.3); CREATININE 0.8 mg/dL (0.4-1.0); URIC ACID 5.2 mg/dL (2.6-7.2)
[2020-03-27 21:01] LABS: CREATININE,URINE 29.1 mg/dL; TOTAL PROTEIN,URINE TIMED < 6 mg/dL
--- NOTE | 2020-03-27 21:24 | PROVIDER PROGRESS NOTE ---
Labor Progress Note - Uterine Monitoring Uterine Monitoring Mode: positive: External toco Contraction Frequency (min/apart): 2-5 Contraction Intensity: positive: Moderate Uterine Resting Tone: positive: Soft - Monitoring Monitor Mode: positive: External ultrasound Heart Rate Baseline: 140 Heart Rate Variability: positive: Moderate (6-25 bmp) Accelerations: positive: Present, 15x15 Decelerations: positive: None Strip Review: positive: Category I - Vaginal Exam Dilation (in cm): 4 Effacement (%): 50 Station: -3 Cervical Position: Posterior - Labor Progress Note Labor Progress Note/Additional Text: S: Breathing through contractions. States most of her contraction pain is felt in the front. She feels she is coping well at this time and requests to get in the jacuzzi. Intends unmedicated delivery. She denies RAMEY, visual disturbances, RUQ or epigastric pain. Mood is good. Partner supportive at the bedside. O: FHR baseline 140s, moderate variability, + accels, no decels Contractions palpate moderate every 2-5 minutes with soft resting tone. SVE unchanged from last check 4 hours ago. AROM x 4 hours BPs elevated. 133-150/89-98. Most recent BP 144/98. Pt is asymptomatic. PIH labs: AST 17 ALT 12 Uric acid 5.2 PLT 206 Creatinine 0.8 Protein/creatinine ratio lower than reportable range Heart RRR w/o M/G/R, lungs CTAB. Abdomen gravid, soft, nontender. DTRs 2+, no clonus. Bilateral LE's trace edema. A: 25yo @ 41.0wks gestation Post dates Early labor Intrapartum Gestational HTN FHR Category I GBS negative P: Initiate pitocin with titration per protocol within 1 hour. Continuous monitoring with initiation of pitocin. Continue frequent BP monitoring. Repeat PIH labs in 12 hours or sooner PRN. Jacuzzi PRN. Nitrous oxide PRN. Epidural per maternal request. Anticipate . Reviewed clinical status and plan of care with order control clerk blood bank physician who is in agreement with above plan. Reviewed plan of care with pt, partner, and RN at the bedside who all verbalized understanding and agree with above plan. They deny further questions or concerns at this time.
[2020-03-27] MEDS ORDERED: OXYTOCIN/SODIUM CHLORIDE 500 ML IV SCH (22:00)
[2020-03-27] MEDS: LACTATED RINGERS 1,000 ML IV SCH (22:22)
[2020-03-28] MEDS ORDERED: fentaNYL 2,500 MCG/50 ML VIAL IV PRN (01:06)
[2020-03-28] MEDS: fentaNYL 100 MCG/2 ML VIAL IVP PRN ×3 (01:44→04:18)
--- NOTE | 2020-03-28 02:45 | PROVIDER PROGRESS NOTE ---
Labor Progress Note - Uterine Monitoring Uterine Monitoring Mode: positive: External toco Contraction Frequency (min/apart): 2-4 Contraction Intensity: positive: Moderate Uterine Resting Tone: positive: Soft - Monitoring Monitor Mode: positive: External ultrasound Heart Rate Baseline: 140 Heart Rate Variability: positive: Moderate (6-25 bmp) Accelerations: positive: Present, 15x15 Decelerations: positive: None Strip Review: positive: Category I - Vaginal Exam Dilation (in cm): 5 Effacement (%): 90 Station: -1 Cervical Position: Posterior - Labor Progress Note Labor Progress Note/Additional Text: S: Breathing through contractions. Using nitrous oxide and coping well with contractions. S/p 50mcg IV Fentanyl which she reports worked well for her get a short break with contractions. She is requesting Fentanyl again for pain management. Partner supportive at the bedside. O: FHR baseline 140s, moderate variability, + accels, no decels Contractions palpate moderate-strong every 2-4 minutes with soft resting tone SVE 5/90/-1, posterior. Vertex. Forebag of membranes ruptured. BP 140/80 - pt remains asymptomatic Pitocin infusing at 2mU/mL A: 25yo @ 41.1wks gestation Post-dates -IOL secondarily FHR Category I GBS negative P: Continue pitocin IOL with titration per protocol Continuous monitoring. Jaccuzzi PRN. Nitrous oxide PRN. Continue Fentanyl 50mcg IVP q 1 hour PRN pain Epidural per maternal request Anticipate .
--- NOTE | 2020-03-28 05:50 | PROVIDER PROGRESS NOTE ---
Labor Progress Note - Uterine Monitoring Uterine Monitoring Mode: positive: IUPC Contraction Frequency (min/apart): 2-3 Contraction Intensity: positive: Moderate to strong Uterine Resting Tone: positive: Soft - Monitoring Monitor Mode: positive: External ultrasound Heart Rate Baseline: 140 Heart Rate Variability: positive: Moderate (6-25 bmp) Accelerations: positive: Present, 15x15 Decelerations: positive: None Strip Review: positive: Category I - Vaginal Exam Dilation (in cm): complete Effacement (%): complete Station: 0 - Labor Progress Note Labor Progress Note/Additional Text: S: Patient feeling comfortable with epidural with the exception of when she is on her right side completely she experiences some left sided discomfort. She is feeling increased acid reflux and TUMS in not helping. She is requesting Pepcid for management. supportive at bedside and family FaceTiming at bedside. Mood is good but she states she is feeling somewhat tired. O: FHR baseline 140s, moderate variability, no accels, no decels Contractions palpate moderate-strong every 2-3 minutes with soft resting tone. M VUs 120s. SVE c/c/0-+1 Pitocin increased to 22mU/mL Active pushing since 0420 with little progress BP 107/54 A: 25yo @ 39.1wks gestation Gestational HTN- IOL secondary to gestational HTN. BPs are currently WNL and pt remains asymptomatic. Prolonged IOL Obesity GBS negative FHR category I P: Concern for elevated risk for hemorrhage. Pt is type and crossmatched for 2 units with 2 held back- ready. All uterotonic medications ready at the bedside at time of delivery. concrete mason physician presence requested at time of delivery. Continuous monitoring Will increase pitocin to 24mU/mL and maintain infusion at that rate to increase strength of utertine contractions. Pt has been actively pushing x 1.5 hours with little progress made. Labor down x 2 minutes and resolve acid reflux, then resume pushing. Will continue to push x 30 addition minutes and if no or little progress is made, will request physician presence to evaluate. Anticipate at this time.
[2020-03-28] MEDS ORDERED: ROPIVACAINE 0.2% 200 MG/100 ML BAG EP ONE (06:01)
[2020-03-28] MEDS ORDERED: NALOXONE 0.4 MG/ML VIAL IVP PRN ×2 (06:50→16:27)
[2020-03-28] MEDS ORDERED: diphenhydrAMINE INJ 50 MG/ML VIAL IVP PRN (06:50)
[2020-03-28] MEDS ORDERED: ePHEDrine 50 MG/ML VIAL IVP PRN ×2 (06:50→16:27)
[2020-03-28] MEDS ORDERED: METOCLOPRAMIDE 10 MG/2 ML VIAL IVP PRN ×2 (06:50→16:27)
[2020-03-28] MEDS ORDERED: ROPIVACAINE 0.2% 200 MG/100 ML BAG EP PRN (06:50)
[2020-03-28] MEDS ORDERED: NALBUPHINE 10 MG/ML AMP IVP PRN (06:50)
[2020-03-28] MEDS ORDERED: ONDANSETRON 4 MG/2 ML VIAL IVP PRN ×2 (06:50→16:27)
--- NOTE | 2020-03-28 06:55 | ANESTHESIA ---
Pre-Anesthesia VS, & Labs - Diagnosis labor induction, active labor - Procedure labor epidural Vital Signs: Temp Pulse Resp BP Pulse Ox 36.8 C 103 H 16 117/61 100 03/27/20 12:58 03/27/20 12:58 03/27/20 12:58 03/27/20 12:58 03/27/20 12:58 Height: 5 ft 4 in Weight (kg): 105.233 kg Body Mass Index: 39.8 BMI Classification: Obese - Is Patient ?: Yes - Lab Results Current Lab Results: Laboratory Tests 03/27/20 19:22: Sodium 131 L, Potassium 3.8, Chloride 100 L, Carbon Dioxide 22, Anion Gap 9.0, BUN 9, Creatinine 0.8, Estimated GFR (MDRD) 104, Glucose 92, Uric Acid 5.2, Calcium 8.9, Total Bilirubin 0.6, AST 17, ALT 12, Alkaline Phosphatase 134 H, Total Protein 7.0, Albumin 2.9 L, Globulin 4.1, Albumin/Globulin Ratio 0.7 L 03/27/20 19:22: WBC 8.3, RBC 3.70 L, Hgb 8.8 L, Hct 29.6 L, MCV 80.0 L, MCH 23.8 L, MCHC 29.7 L, RDW 19.9 H, Plt Count 206, MPV 9.5, Neut # (Auto) 4.6, Lymph # (Auto) 2.1, [place] # (Auto) 1.3 H, Eos # (Auto) 0.2, Baso # (Auto) 0.0, Absolute Nucleated RBC 0.02, Nucleated RBC % 0.2 03/27/20 09:10: Blood Type A POSITIVE, Antibody Screen NEGATIVE, Crossmatch IS Only See Detail 03/27/20 09:06: Blood Type Recheck A POSITIVE 03/27/20 09:06: WBC 7.9, RBC 3.68 L, Hgb 8.7 L, Hct 29.9 L, MCV 81.3, MCH 23.6 L , MCHC 29.1 L, RDW 20.0 H, Plt Count 204, MPV 9.4, Neut # (Auto) 4.5, Lymph # (Auto) 2.1, [place] # (Auto) 1.0, Eos # (Auto) 0.2, Baso # (Auto) 0.0, Absolute Nucleated RBC 0.00, Nucleated RBC % 0.0 Fish Bones: 03/27/20 19:22 03/27/20 19:22 Home Medications and Allergies Active Medications Acetaminophen (Tylenol) 650 mg PO Q6H PRN PRN Reason: Pain or Fever Carboprost Tromethamine (Hemabate) 250 mcg IM Q15M PRN PRN Reason: Step 4: Hemorrhage protocol Stop: 04/01/20 08:24 Fentanyl (Fentanyl) 50 mcg IVP Q1H PRN PRN Reason: PAIN Last Admin: 03/28/20 04:18 Dose: 50 mcg Documented by: Oxytocin/Sodium Chloride (Pitocin/Sodium Chloride) 500 mls @ 999 mls/hr IV PRN PRN; Protocol PRN Reason: POST- HEMORR PREVENTION Stop: 04/01/20 08:24 Tranexamic Acid 1,000 mg/ (Sodium Chloride) 110 mls @ 660 mls/hr IV .ONCE PRN PRN Reason: EBL >1200mL and within 3hr Stop: 04/01/20 08:24 Lactated Ringer's (Lr) 1,000 mls @ 100 mls/hr IV .Q10H CHANEL Last Admin: 03/27/20 22:22 Dose: 100 mls/hr Documented by: Oxytocin/Sodium Chloride (Pitocin/Sodium Chloride) 500 mls @ 1 mls/hr IV TITR CHANEL; Protocol Last Admin: 03/27/20 22:41 Dose: 1 milliunit/min, 1 mls/hr Documented by: Lidocaine HCl (Xylocaine-Mpf 1% Vial) 30 ml ID .ONCE PRN PRN Reason: PERINEAL REPAIR Stop: 04/01/20 08:24 Methylergonovine Maleate (Methergine Inj) 0.2 mg IM .ONCE PRN PRN Reason: Step 2: Hemorrhage protocol Stop: 04/01/20 08:24 Misoprostol (Cytotec) 800 mcg BC .ONCE PRN PRN Reason: Step 3: Hemorrhage protocol Stop: 04/01/20 08:24 Ondansetron HCl (Zofran Inj) 4 mg IVP Q4HR PRN PRN Reason: Nausea / Vomiting Oxytocin (Pitocin) 10 unit IM .ONCE PRN PRN Reason: Step one: If no IV access Stop: 04/01/20 08:24 Sodium Chloride (Normal Saline Flush 0.9%) 10 ml IVP 0100,0900,1700 CHANEL Sodium Chloride (Normal Saline Flush 0.9%) 10 ml IVP PRN PRN PRN Reason: NEEDED PER PROVIDER ORDERS Allergies/Adverse Reactions: Allergies Allergy/AdvReac Type Severity Reaction Status Date / Time No Known Drug Allergies Allergy Verified 03/07/20 10:17 Anes History & Medical History - Anesthetic History Anesthesia Complications: reports: No previous complications - Medical History Cardiovascular: reports: None Pulmonary: reports: None Urinary: reports: None Neuro: reports: None Smoking Status: Never smoker - Obstetrical History : 1 Parity: 0 Events: positive: None Complications: positive: None Exam General: Alert Dental: WNL Mouth Opening: Greater than 4 Fingerbreadths Respiratory: Lungs clear Cardiovascular: Regular rate Plan Anesthesia Type: Epidural Consent for Procedure(s) Verified and Reviewed: Yes Code Status: Attempt Resuscitation ASA classification: 2-Mild systemic disease Is this case an emergency?: Yes
[2020-03-28] MEDS: LACTATED RINGERS 1,000 ML IV SCH ×2 (07:58→12:05)
--- NOTE | 2020-03-28 09:13 | PROVIDER PROGRESS NOTE ---
Labor Progress Note - Uterine Monitoring Uterine Monitoring Mode: positive: External toco Contraction Frequency (min/apart): 2-4 Contraction Intensity: positive: Moderate to strong Uterine Resting Tone: positive: Soft - Monitoring Monitor Mode: positive: External ultrasound Heart Rate Baseline: 150 Heart Rate Variability: positive: Moderate (6-25 bmp) Accelerations: positive: Absent Decelerations: positive: Late, Intermittent (<50% x20 min) Strip Review: positive: Category II - Vaginal Exam Dilation (in cm): 8 Effacement (%): 90 Station: 0 Cervical Position: Anterior - Labor Progress Note Labor Progress Note/Additional Text: S: Feeling comfortable with epidural. Starting to feel some spontaneous shaking but denies feeling cold. She is currently in a high thrones position and feeling comfortable. She denies RAMEY, visual disturbances, RUQ or epigastric pain. Partner sleeping at the bedside. O: FHR baseline 150s, moderate variability, no accels, one late decel. Overall reassuring. Contractions palpate firm every 2-4 minutes with soft resting tone. Pitocin @ 3mU/mL A: 25yo @ 41.1wks gestation by 8.6wk U/S Postdates - IOL secondarily Active labor FHR Category II - overall reassuring Anemia complicating . Most recent Hgb/Hct 8.8/29.6. Pt is typed and crossmatched x 2 units - 2 units ready GBS negative P: Continuous monitoring Continue frequent assessment of BP. Repeat PIH labs now. Encouraged position changes in bed on peanut ball. Maintain epidural for adequate pain management. All uterotonics in the room at time of deliveryand will ensure active management of the third stage. Anticipate . Reviewed plan of care with pt and RN at the bedside who agree with above plan and deny further questions or concerns at this time.
[2020-03-28] MEDS ORDERED: ACETAMINOPHEN 1,000 MG/100 ML 100 ML IV ONE (09:42)
[2020-03-28] MEDS ORDERED: AMPICILLIN/SULBACTAM 3 GM in SODIUM CHLORIDE 0.9% MINIBAG 100 ML IV SCH (09:47)
--- NOTE | 2020-03-28 09:58 | PROVIDER PROGRESS NOTE ---
Labor Progress Note - Uterine Monitoring Uterine Monitoring Mode: positive: External toco Contraction Frequency (min/apart): 2-4 Contraction Intensity: positive: Strong Uterine Resting Tone: positive: Soft - Monitoring Monitor Mode: positive: External ultrasound Heart Rate Baseline: 170 Heart Rate Variability: positive: Moderate (6-25 bmp) Accelerations: positive: Absent Decelerations: positive: None Strip Review: positive: Category II - Labor Progress Note Labor Progress Note/Additional Text: S: Feeling comfortable with epidural but shaking has increased in intensity. She states she feels cold. She denies RAMEY, visual disturbances, RUQ or epigastric pain. She denies dizziness or lightheadedness. Partner supportive at the bedside. O: FHR baseline 170, moderate variability, no accels, no decels Contractions palpate firm q 2-4 minutes with soft resting tone T 101.3, BP 123/43, P 138 AROM x 16.5hrs (occurred @ 1740 on 03/27/2020) Pitocin d/c secondary to tachycardia-maximum infusion rate 3mU/mL SVE deferred at this time A/P: 25yo @ 41.1wks gestation by LMP c/w first trimester U/S Post-dates - IOL secondarily FHR Category II- maintain continuous monitoring tachycardia and maternal fever - Unasyn 3gm IV initiated and IV tylenol administered Anemia complicating - pt type and cross matched x 2 units - 2 units ready Gestational HTN - moderate range BPs, asymptomatic. Repeat PIH labs pending with initial labs WNL supervisor coremaker physician notified and consulted regarding maternal fever and recommendation to initiate antibiotic given and reports agreement with plan of care at this time.
[2020-03-28 10:11] LABS: HGB - HEMOGLOBIN 8.4 g/dL (12.0-16.0); MEAN CORPUSCULAR HEMOGLOBIN 24.2 pg (27.0-31.0); MEAN CORPUSCULAR HGB CONC 29.9 g/dL (32.0-36.0); MEAN PLATELET VOLUME 9.3 fL (7.9-10.8); RED BLOOD COUNT 3.47 10^6/uL (4.20-5.40); RED CELL DISTRIBUTION WIDTH 19.9 % (12.0-15.0)
[2020-03-28 10:28] LABS: ALBUMIN 2.8 g/dL (3.2-5.5); ALBUMIN/GLOBULIN RATIO 0.8 (1.0-2.2); BILIRUBIN,TOTAL 0.8 mg/dL (0.2-1.0); CALCIUM 8.7 mg/dL (8.5-10.3); CREATININE 0.9 mg/dL (0.4-1.0); TOTAL PROTEIN 6.5 g/dL (6.7-8.2); URIC ACID 5.4 mg/dL (2.6-7.2)
--- NOTE | 2020-03-28 10:54 | PROVIDER PROGRESS NOTE ---
Labor Progress Note - Uterine Monitoring Uterine Monitoring Mode: positive: External toco Contraction Frequency (min/apart): 4 Contraction Intensity: positive: Strong Uterine Resting Tone: positive: Soft - Monitoring Monitor Mode: positive: External ultrasound Heart Rate Baseline: 185 Heart Rate Variability: positive: Moderate (6-25 bmp) Accelerations: positive: Absent Decelerations: positive: None Strip Review: positive: Category I - Vaginal Exam Dilation (in cm): 8 Effacement (%): 90 Station: 0 - Labor Progress Note Labor Progress Note/Additional Text: Pt states she is feeling better. No longer shaking and no longer feeling chilled. Partner supportive at the bedside. BP 110/46, T 98.8 FHR baseline 180, minimal variability, no accels, no decels Contractions palpate moderate every 5-6 minutes with soft resting tone call center specialist physician notified of clinical status and persistent Category II FHR tracing - advised restarting pitocin. Pitocin inidated @ 2mU/mL - will titrate per protocol. S/p 1000mg IV tylenol. Cold compresses applied to pt abdomen Unasyn 3g completed Continuos monitoring
[2020-03-28 11:35] LABS: PROTEIN/CREATININE RATIO,URINE 0.3 (<=0.2)
--- NOTE | 2020-03-28 12:03 | PROVIDER PROGRESS NOTE ---
Labor Progress Note - Uterine Monitoring Uterine Monitoring Mode: positive: External toco Contraction Frequency (min/apart): 2-4 Contraction Intensity: positive: Strong Uterine Resting Tone: positive: Soft - Monitoring Monitor Mode: positive: External ultrasound Heart Rate Baseline: 170 Heart Rate Variability: positive: Moderate (6-25 bmp) Accelerations: positive: Absent Decelerations: positive: Late, Intermittent (<50% x20 min) Strip Review: positive: Category II - Vaginal Exam Dilation (in cm): 9 Effacement (%): 100 Station: 0 - Labor Progress Note Labor Progress Note/Additional Text: S: Feeling some discomfort on left side but overall feeling improved. She denies feeling cold or hot and is no longer shaking. She denies lightheadedness or dizzy. She reported brief, new onset headache which has resolved since administration of IV Tylenol. She denies visual disturbances, RUQ or epigastric pain. Partner supportive at the bedside. O: BP 120/65, T 37.0, HR 121, RR 18 Heart RRR w/o M/G/R, lungs CTAB. Abdomen soft and nontender. Bilateral LE's trace edema. FHR baseline 175, moderate variability, no accels, occasional late decelerations Contractions palpate firm every 2-3 minutes with soft resting tone SVE 9/100/0. Vertex. Pitocin @ 5mU/mL Labs: Hgb 8.7-->8.8-->8.4 (most recent) Hct 29.9-->29.6-->28.1 (most recent) *WBC 7.9-->8.3-->15.0 (most recent) PLT 209 AST 20 ALT 12 Uric acid 5.4 Creatinine 0.9 *Protein/creatinine ratio 0.3 A: 25yo @ 41.1wks gestation Post-dates - IOL secondarily Intraamniotic infection -maternal fever -maternal tachycardia - tachycardia -odorous amniotic fluid Preeclampsia without severe features FHR Category II Anemia complicated . P: Reviewed updated clinical status with account solutions analyst physician who denies changes to plan of care at this time. Continuous monitoring Close BP monitoring Will request presence of dental biller at delivery secondary to persistent tachycardia and intrapartum maternal fever. Will ensure active management of the third stage secondary to pt elevated risk for pp hemorrhage due to intraamniotic infection as well as anemia. Continue Unasyn 3g q 6 hours with minimum 1 dose administered . Pt has been typed and crossmatched x 2 unit ready. Collaboration with account solutions analyst physician to remain ongoing. Anticipate Pt, partner at the bedside, and labor RN all verbalized understanding and agree to above plan. They deny further questions or concerns at this time.
--- NOTE | 2020-03-28 13:29 | PROVIDER PROGRESS NOTE ---
Labor Progress Note - Labor Progress Note Labor Progress Note/Additional Text: S: Feeling comfortable with epidural. Feeling slightly less shaky but is persistently feeling cold. She denies lightheadedness or dizzy. She denies RAMEY, visual disturbances, RUQ or epigastric pain. Partner supportive at the bedside. O: BP 114/66, T 38.4, HR 130, RR 18 Abdomen soft and nontender. Bilateral LE's 1+ edema. FHR baseline 175, minimal variability with occasional periods of moderate variability. Fetus responds to scalp stimulation and moderate variability is achieved, no accels, no decels Contractions palpate firm every 2-4 minutes with soft resting tone SVE 9/100/0. Vertex. Pushing through 2 contractions and unable to reduce cervix - pushing stopped. Pitocin @ 7mU/mL Urine output 10cc over the past 30 minutes. Previously 50cc/hr Labs: Hgb 8.7-->8.8-->8.4 (most recent) Hct 29.9-->29.6-->28.1 (most recent) *WBC 7.9-->8.3-->15.0 (most recent) PLT 209 AST 20 ALT 12 Uric acid 5.4 Creatinine 0.9 *Protein/creatinine ratio 0.3 A: 25yo @ 41.1wks gestation Post-dates - IOL secondarily Intraamniotic infection - s/p 1000mg tylenol IV and 3g Unasyn IV -maternal fever -maternal tachycardia - tachycardia -previously odorous amniotic fluid and this appears to have improved since treatment Preeclampsia without severe features. BPs normotensive at this time. FHR Category II Anemia complicating P: Reviewed updated clinical status with donations attendant physician who states she will be present on the floor x 15 min. Reassured by periods of moderate variability and increased FHR variability to moderate in response to scalp stimulation. Requests STAT creatinine - ordered and lab currently present to draw. Continuous monitoring Form Designer presence requested at delivery secondary to persistent tachycardia and intrapartum maternal fever Will ensure active management of the third stage secondary to pt elevated risk for pp hemorrhage due to intraamniotic infection as well as anemia. Continue Unasyn 3g q 6 hours with minimum 1 dose administered . Pt has been typed and crossmatched x 2 unit ready. Collaboration with donations attendant physician to remain ongoing. Pt, partner at the bedside, and labor RN all verbalized understanding and agree to above plan. They deny further questions or concerns at this time.
[2020-03-28 13:51] LABS: ALBUMIN 2.6 g/dL (3.2-5.5); ALBUMIN/GLOBULIN RATIO 0.7 (1.0-2.2); BILIRUBIN,TOTAL 1.1 mg/dL (0.2-1.0); CALCIUM 8.5 mg/dL (8.5-10.3); CREATININE 1.1 mg/dL (0.4-1.0); TOTAL PROTEIN 6.6 g/dL (6.7-8.2)
[2020-03-28] MEDS ORDERED: MAGNESIUM SULFATE 4 GRAM 4 GM/50 ML BAG IV ONE ×2 (14:10→16:08)
[2020-03-28] MEDS ORDERED: BUPIVACAINE 0.25% PF 30 ML VIAL SUBQ ONE ×2 (14:49)
[2020-03-28] MEDS ORDERED: BUPIVACAINE 0.25% PF 30 ML VIAL ONE (14:51)
[2020-03-28] MEDS ORDERED: LIDOCAINE-MPF 1% 30 ML VIAL ONE (14:51)
[2020-03-28] MEDS ORDERED: BUPIVACAINE 0.5% PF 30 ML VIAL ONE (14:51)
[2020-03-28] MEDS ORDERED: LIDOCAINE 1%-EPI 1:100000 20 ML MDV ONE (14:51)
--- NOTE | 2020-03-28 15:54 | PROVIDER PROGRESS NOTE ---
Subjective - Prog Note Date Prog Note Date: 03/28/20 Prog Note Time: 14:00 - Subjective Subjective: RN reports urine output 5cc in 30 minutes. Creatinine 1.1. Call to director of acquisition marketing physician at 1358 and physician present on the floor at 1400. SVE unchanged with thick anterior lip that is persistent. Care transferred to director of acquisition marketing physician Dr. Don. Objective - Vital Signs/Intake & Output Intake & Output: Intake & Output 03/25/20 03/26/20 03/27/20 03/28/20 23:59 23:59 23:59 23:59 Intake Total 500 1971.667 Output Total 200 1435 Balance 300 536.667 - Lab Results Fish Bones: 03/28/20 10:08 03/28/20 13:28 Other Labs: Lab Results x24hrs 03/28/20 03/28/20 03/28/20 Range/Units 13:28 10:28 10:08 WBC (4.8-10.8) x10^3/uL RBC (4.20-5.40) 10^6/uL Hgb (12.0-16.0) g/dL Hct (37.0-47.0) % MCV (81.0-99.0) fL MCH (27.0-31.0) pg MCHC (32.0-36.0) g/dL RDW (12.0-15.0) % Plt Count (130-450) 10^3/uL MPV (7.9-10.8) fL Neut # (Auto) (1.5-6.6) 10^3/uL Lymph # (Auto) (1.5-3.5) 10^3/uL [place] # (Auto) (0.0-1.0) 10^3/uL Eos # (Auto) (0.0-0.7) 10^3/uL Baso # (Auto) (0.0-0.1) 10^3/uL Absolute Nucleated RBC x10^3/uL Nucleated RBC % /100WBC Sodium 132 L 135 (135-145) mmol/L Potassium 3.5 4.3 (3.5-5.0) mmol/L Chloride 99 L 101 (101-111) mmol/L Carbon Dioxide 19 L 20 L (21-32) mmol/L Anion Gap 14.0 H 14.0 H (6-13) BUN 10 9 (6-20) mg/dL Creatinine 1.1 H 0.9 (0.4-1.0) mg/dL Estimated GFR (MDRD) 72 L 91 (>89) Glucose 76 91 (70-100) mg/dL Uric Acid 5.4 (2.6-7.2) mg/dL Calcium 8.5 8.7 (8.5-10.3) mg/dL Total Bilirubin 1.1 H 0.8 (0.2-1.0) mg/dL AST 20 20 (10-42) IU/L ALT 11 12 (10-60) IU/L Alkaline Phosphatase 130 H 128 H (42-121) IU/L Total Protein 6.6 L 6.5 L (6.7-8.2) g/dL Albumin 2.6 L 2.8 L (3.2-5.5) g/dL Globulin 4.0 3.7 (2.1-4.2) g/dL Albumin/Globulin Ratio 0.7 L 0.8 L (1.0-2.2) Urine Creatinine 210.0 Ur Total Protein Timed 68 Protein/Creatinin Ratio 0.3 H 03/28/20 03/27/20 03/27/20 Range/Units 10:08 20:28 19:22 WBC 15.0 H (4.8-10.8) x10^3/uL RBC 3.47 L (4.20-5.40) 10^6/uL Hgb 8.4 L (12.0-16.0) g/dL Hct 28.1 L (37.0-47.0) % MCV 81.0 (81.0-99.0) fL MCH 24.2 L (27.0-31.0) pg MCHC 29.9 L (32.0-36.0) g/dL RDW 19.9 H (12.0-15.0) % Plt Count 209 (130-450) 10^3/uL MPV 9.3 (7.9-10.8) fL Neut # (Auto) (1.5-6.6) 10^3/uL Lymph # (Auto) (1.5-3.5) 10^3/uL [place] # (Auto) (0.0-1.0) 10^3/uL Eos # (Auto) (0.0-0.7) 10^3/uL Baso # (Auto) (0.0-0.1) 10^3/uL Absolute Nucleated RBC x10^3/uL Nucleated RBC % /100WBC Sodium 131 L (135-145) mmol/L Potassium 3.8 (3.5-5.0) mmol/L Chloride 100 L (101-111) mmol/L Carbon Dioxide 22 (21-32) mmol/L Anion Gap 9.0 (6-13) BUN 9 (6-20) mg/dL Creatinine 0.8 (0.4-1.0) mg/dL Estimated GFR (MDRD) 104 (>89) Glucose 92 (70-100) mg/dL Uric Acid 5.2 (2.6-7.2) mg/dL Calcium 8.9 (8.5-10.3) mg/dL Total Bilirubin 0.6 (0.2-1.0) mg/dL AST 17 (10-42) IU/L ALT 12 (10-60) IU/L Alkaline Phosphatase 134 H (42-121) IU/L Total Protein 7.0 (6.7-8.2) g/dL Albumin 2.9 L (3.2-5.5) g/dL Globulin 4.1 (2.1-4.2) g/dL Albumin/Globulin Ratio 0.7 L (1.0-2.2) Urine Creatinine 29.1 Ur Total Protein Timed < 6 Protein/Creatinin Ratio Not Reportable 03/27/20 03/27/20 Range/Units 19:22 10:28 WBC 8.3 (4.8-10.8) x10^3/uL RBC 3.70 L (4.20-5.40) 10^6/uL Hgb 8.8 L (12.0-16.0) g/dL Hct 29.6 L (37.0-47.0) % MCV 80.0 L (81.0-99.0) fL MCH 23.8 L (27.0-31.0) pg MCHC 29.7 L (32.0-36.0) g/dL RDW 19.9 H (12.0-15.0) % Plt Count 206 (130-450) 10^3/uL MPV 9.5 (7.9-10.8) fL Neut # (Auto) 4.6 (1.5-6.6) 10^3/uL Lymph # (Auto) 2.1 (1.5-3.5) 10^3/uL [place] # (Auto) 1.3 H (0.0-1.0) 10^3/uL Eos # (Auto) 0.2 (0.0-0.7) 10^3/uL Baso # (Auto) 0.0 (0.0-0.1) 10^3/uL Absolute Nucleated RBC 0.02 x10^3/uL Nucleated RBC % 0.2 /100WBC Sodium (135-145) mmol/L Potassium (3.5-5.0) mmol/L Chloride (101-111) mmol/L Carbon Dioxide (21-32) mmol/L Anion Gap (6-13) BUN (6-20) mg/dL Creatinine (0.4-1.0) mg/dL Estimated GFR (MDRD) (>89) Glucose (70-100) mg/dL Uric Acid (2.6-7.2) mg/dL Calcium (8.5-10.3) mg/dL Total Bilirubin (0.2-1.0) mg/dL AST (10-42) IU/L ALT (10-60) IU/L Alkaline Phosphatase (42-121) IU/L Total Protein (6.7-8.2) g/dL Albumin (3.2-5.5) g/dL Globulin (2.1-4.2) g/dL Albumin/Globulin Ratio (1.0-2.2) Urine Creatinine Cancelled Ur Total Protein Timed Cancelled Protein/Creatinin Ratio Cancelled
[2020-03-28] MEDS ORDERED: ONDANSETRON ODT 4 MG TABLET TL PRN (16:08)
[2020-03-28] MEDS ORDERED: SODIUM CHLORIDE FLUSH 0.9% 10 ML SYRINGE IVP PRN (16:08)
[2020-03-28] MEDS ORDERED: CALCIUM GLUCONATE 1000 MG/10 ML VIAL IVP PRN (16:08)
[2020-03-28] MEDS ORDERED: MAGNESIUM SULFATE 2 GRAM 2 GM/50 ML BAG IV ONE (16:08)
[2020-03-28] MEDS ORDERED: LACTATED RINGERS 300 ML IV ONE (16:08)
[2020-03-28] MEDS ORDERED: LACTATED RINGERS 650 ML IV ONE (16:08)
--- NOTE | 2020-03-28 16:16 | OPERATIVE REPORT ---
Operative Report - General Admit Date: 03/27/20 Procedure Date: 03/28/20 Planned Procedure: Primary low transverse Pre-Op Diagnosis: Failure to progress, chorioamnionitis, preeclampsia Procedure Performed: Primary low transverse Post Op Diagnosis: same and dleivery of term gestation - Procedure Note Primary Surgeon: Kiara Don MD Secondary Surgeon: Trinity Recio CNM Anesthesia Provider: Aileen Lamar CRNA Anesthesia Technique: Combo spinal/epidural Pathology: Placenta to pathology and culture of membranes IV Fluids (mL): 1,900 (1200 crystalloid, 700 cc pitocin) Estimated Blood Loss (mL): 600 Urine Output (mL): 300 Indications: This 25yo admitted @ 41.0wks gestation by LMP c/w 8.6wk U/S presented to [facility] on 03/27/2020 at 0800 for post-dates induction of labor. During the course of the induction she developed mild range blood pressures. She became febrile and tracing showed tachycardia. Creatinine doubled in value. heart rate was sustained in the 180s with loss of reactivity. Despite adequate contractions with pitocin augmentation, she did not progress past 9 cm over 2 hours. Given the worsening pre-eclampsia, chorioamnionitis, persistent tachycardia, and failure to progress, the decision was made to proceed with c- section delivery. Written informed consent was obtained. Findings: Normal appearing uterus, tubes, and ovaries. The left tube had a paratubal cyst which was removed and discarded. Viable female in vertex presentation with Apgars of 3/6/8, weight and gases pending. Complications: None - Other Other Information/Narrative: Risks benefits and alternatives of the procedure were discussed. Written informed consent was obtained. Patient was taken to the operating room where spinal anesthesia was placed and found to be adequate. She was prepped and draped in the usual sterile fashion in the dorsal supine position with a leftward tilt. Bettencourt catheter was in place. SCDs were in place and activated. Cefazolin 2 g IV was given as a preoperative antibiotic. Preoperative timeout was performed. A total of 10 cc of 0.25% bupivicaine was injected into the suture line prior to making the incision. A Pfannenstiel incision was made in the skin with a scalpel and carried through the underlying layer of fascia in a combination of sharp and blunt dissection. The fascia was incised in the midline, and the incision was extended laterally with the Rosen scissors. The superior aspect of the fascial incision was grasped with the Nasra clamps, elevated, and the underlying rectus muscles were dissected off bluntly and sharply using the Rosen scissors. Attention was then turned to the inferior aspect of the incision which in a similar fashion was grasped, tented up with Nasra clamps, and the underlying rectus muscles dissected off bluntly and sharply using Rosen scissors. The rectus muscles were then in the midline. The peritoneum was identified, tented up, and entered bluntly. The peritoneal incision was extended superiorly and inferiorly with good visualization of the bladder. The bladder that blade was then inserted. A bladder flap was not created. The lower uterine segment of the uterus was identified, and incised in a tra nsverse fashion with a scalpel. The uterus was entered bluntly. The uterine incision was extended in a craniocaudal fashion by manual stretch. The bladder blade was removed. The infant was delivered from from vertex position. Baby was wrapped in a warm sterile towel. Delayed cord clamping was NOT performed. The cord was clamped x2 and cut. The infant was handed off to the waiting pediatricians. The placenta was removed with manual expression. The uterus was exteriorized and cleared of all clots clots and debris via manual swipe using Ray-Ludmila x2. The uterine incision was then repaired in a running locked fashion using 0 Vicryl suture. The incisoin was reinforced with a running imbricating layer again using 0-Vicryl suture. Excellent hemostasis was obtained. A small pedunculated paratubal cyst was noted at the left fallopian tube that was fixed to the omentum. With verbal consent for removal, the stalk was cauterized and the cyst was excised and removed from the field for routine discard. Good hemostasis was noted. The uterus was returned to the abdomen. The gutters were cleared of all clots and debris. The pelvis was irrigated with sloppy wet lap sponges. The uterine defect was well visualized in normal anatomic position it was noted again to be hemostatic. The peritoneum was then reapproximated with 2-0 Vicryl in a running fashion. The rectus muscles were then reapproximated using interrupted [id number] sutures using 2-0 Chromic. Good hemostasis was noted. The fascia was then closed using 0 Vicryl in a running fashion starting from the left lateral edge to the midline. A second suture was used to close the fascia in a running fashion starting from the right lateral edge and meeting in the midline, agian using 0-Vicryl. The subcutaneous tissue was then irrigated and closed using 2-0 chromic in a running subcutaneous suture. Skin was closed in a running subcuticular suture using 4-0 Monocryl. Steri-Strips were applied to reinforce the incsion and dressing was applied. An additional 10 cc of 0.25% bupivicaine was injected into the incision. Procedure was well-tolerated and without complication. Sponge lap and needle counts were correct x2. Patient was taken to recovery room in stable condition.
[2020-03-28] MEDS ORDERED: fentaNYL 100 MCG/2 ML VIAL IVP PRN (16:27)
[2020-03-28] MEDS ORDERED: HYDROmorphone 0.5 MG/0.5 ML SYRINGE IVP PRN (16:27)
[2020-03-28] MEDS ORDERED: ATROPINE ABBOJECT 1 MG/10 ML SYRINGE IVP PRN (16:27)
[2020-03-28] MEDS ORDERED: MORPHINE 2 MG/ML CARPUJECT IVP PRN (16:27)
[2020-03-28] MEDS ORDERED: MAGNESIUM SULFATE IN WATER 20 GM/500 ML IV.SOLN IV SCH (17:00)
[2020-03-28] MEDS ORDERED: LACTATED RINGERS 1,000 ML IV SCH ×2 (17:00)
[2020-03-28] MEDS ORDERED: SODIUM CHLORIDE FLUSH 0.9% 10 ML SYRINGE IVP SCH (17:00)
[2020-03-28] MEDS ORDERED: MEASLES,MUMPS & RUBELLA VACC 0.5 ML VIAL SUBQ ONE (17:00)
[2020-03-28] MEDS: PIPERACILLIN/TAZOBACTAM 3.375 GM in SODIUM CHLORIDE 0.9% MINIBAG 100 ML IV SCH (17:45)
--- NOTE | 2020-03-28 18:27 | ANESTHESIA POST OP EVALUATION ---
Anesthesia Post Eval - Post Anesthesia Eval Vitals: Last Vital Signs Temp 37.2 C 03/28/20 17:04 Pulse 126 H 03/28/20 17:04 Resp 18 03/28/20 17:04 BP 113/91 H 03/28/20 17:04 Pulse Ox 100 03/28/20 17:04 CV Function Including HR & BP: positive: Stable Pain Control: positive: Satisfactory Nausea & Vomiting: positive: Negative Mental Status: positive: Baseline Hydration Status: Satisfactory Anesthesia Complications: positive: None (awake, alert, comfortable)
[2020-03-28 19:24] LABS: BASOPHILS % (AUTO) 0.3 %; EOSINOPHILS % (AUTO) 0.2 %; HGB - HEMOGLOBIN 8.6 g/dL (12.0-16.0); LYMPHOCYTES % (AUTO) 3.7 %; MEAN CORPUSCULAR HEMOGLOBIN 24.1 pg (27.0-31.0); MEAN CORPUSCULAR HGB CONC 29.9 g/dL (32.0-36.0); MEAN CORPUSCULAR VOLUME 80.7 fL (81.0-99.0); MEAN PLATELET VOLUME 10.4 fL (7.9-10.8); MONOCYTES % (AUTO) 9.1 %; NEUTROPHILS % (AUTO) 85.8 %; PLT - PLATELET COUNT 198 10^3/uL (130-450); RED BLOOD COUNT 3.57 10^6/uL (4.20-5.40); RED CELL DISTRIBUTION WIDTH 20.1 % (12.0-15.0); WHITE BLOOD COUNT 20.4 x10^3/uL (4.8-10.8)
[2020-03-28 19:27] LABS: ABNORMAL LYMPHS % (MANUAL) 0 %
[2020-03-28 19:33] LABS: CREATININE 1.1 mg/dL (0.4-1.0)
[2020-03-28] MEDS: oxyCODONE 5 MG TABLET PO PRN (20:21)
[2020-03-28] MEDS: DOCUSATE SODIUM 100 MG CAPSULE PO SCH (20:21)
--- NOTE | 2020-03-28 20:38 | PROVIDER PROGRESS NOTE ---
Subjective - Prog Note Date Prog Note Date: 03/28/20 Prog Note Time: 20:00 - Subjective Subjective: Patient with elevated temp at 37.9. Has received acetaminophen 1000 mg po x1. S/p cefazolin in OR and Zosyn post op. No pain and does not feel unwell. Desire po intake. No N/V. Starting magnesium 4g bolus followed with 1g/hr infusion. Repeat labs show creatinine remains elevated at 1.1 Urine output excellent and patient appears to be diuresing well. HCT stable at 28.8 and plts wnl. WBC elevated at 20.5. Attempting to BF . Lochia minimal Objective - Vital Signs/Intake & Output Vital Signs: Vital Signs x48h Temp Pulse Pulse Resp BP BP Pulse Ox 03/28/20 20:28 99.1 F 123 H 16 139/72 H 100 03/28/20 19:45 16 124/91 H 99 03/28/20 19:16 118 H 16 136/78 H 100 03/28/20 19:00 119 H 18 123/81 H 100 03/28/20 18:45 100.0 F H 113 H 17 133/78 H 100 03/28/20 18:30 117 H 18 138/84 H 100 03/28/20 18:15 122 H 18 145/88 H 99 03/28/20 18:00 100.4 F H 122 H 19 113/77 99 03/28/20 17:45 120 H 18 137/78 H 99 03/28/20 17:30 99.7 F H 129 H 17 132/81 H 100 03/28/20 17:15 129 H 18 148/94 H 98 03/28/20 17:04 99.0 F 126 H 18 113/91 H 100 03/28/20 16:59 207.0 F H 127 H 16 86/59 L 100 03/28/20 16:53 100.0 F H 114 H 25 H 117/82 H 96 03/28/20 16:47 97.2 F L 126 H 21 140/75 H 100 03/28/20 16:41 101.5 F H 128 H 18 134/71 H 98 03/28/20 16:35 100.8 F H 128 H 22 131/83 H 100 03/28/20 16:30 100.8 F H 128 H 23 128/73 100 03/28/20 16:25 100.6 F H 125 H 22 135/85 H 100 03/28/20 16:20 97.0 F L 127 H 18 131/94 H 100 03/28/20 16:15 127 H 18 135/98 H 97 03/28/20 16:08 96.8 F L 127 H 122 H 18 117/59 L 142/93 H 100 Intake & Output: Intake & Output 03/25/20 03/26/20 03/27/20 03/28/20 23:59 23:59 23:59 23:59 Intake Total 500 2321.667 Output Total 200 3135 Balance 300 -813.333 - Objective General Appearance: positive: No acute distress Respiratory: positive: No respiratory distress Cardiovascular: positive: Tachycardia, Other Abdomen: positive: Other (FF below umbi. Not markedly tender. soft and non-dist ended) Skin: positive: Color nml, Warm Extremities: positive: Non-tender, Pedal edema, Other (SCDs in place) Neurologic/Psychiatric: positive: Oriented x3 - Lab Results Fish Bones: 03/28/20 18:25 03/28/20 18:25 Other Labs: Lab Results x24hrs 03/28/20 03/28/20 03/28/20 Range/Units 18:25 18:25 18:25 WBC 20.4 H (4.8-10.8) x10^3/uL RBC 3.57 L (4.20-5.40) 10^6/uL Hgb 8.6 L (12.0-16.0) g/dL Hct 28.8 L (37.0-47.0) % MCV 80.7 L (81.0-99.0) fL MCH 24.1 L (27.0-31.0) pg MCHC 29.9 L (32.0-36.0) g/dL RDW 20.1 H (12.0-15.0) % Plt Count 198 (130-450) 10^3/uL MPV 10.4 (7.9-10.8) fL Manual Slide Review Indicated Sodium (135-145) mmol/L Potassium (3.5-5.0) mmol/L Chloride (101-111) mmol/L Carbon Dioxide (21-32) mmol/L Anion Gap (6-13) BUN (6-20) mg/dL Creatinine 1.1 H (0.4-1.0) mg/dL Estimated GFR (MDRD) 72 L (>89) Glucose (70-100) mg/dL Uric Acid (2.6-7.2) mg/dL Calcium (8.5-10.3) mg/dL Magnesium 1.2 L (1.7-2.8) mg/dL Total Bilirubin (0.2-1.0) mg/dL AST 25 (10-42) IU/L ALT (10-60) IU/L Alkaline Phosphatase (42-121) IU/L Total Protein (6.7-8.2) g/dL Albumin (3.2-5.5) g/dL Globulin (2.1-4.2) g/dL Albumin/Globulin Ratio (1.0-2.2) Urine Creatinine Ur Total Protein Timed Protein/Creatinin Ratio 03/28/20 03/28/20 03/28/20 Range/Units 13:28 10:28 10:08 WBC (4.8-10.8) x10^3/uL RBC (4.20-5.40) 10^6/uL Hgb (12.0-16.0) g/dL Hct (37.0-47.0) % MCV (81.0-99.0) fL MCH (27.0-31.0) pg MCHC (32.0-36.0) g/dL RDW (12.0-15.0) % Plt Count (130-450) 10^3/uL MPV (7.9-10.8) fL Manual Slide Review Sodium 132 L 135 (135-145) mmol/L Potassium 3.5 4.3 (3.5-5.0) mmol/L Chloride 99 L 101 (101-111) mmol/L Carbon Dioxide 19 L 20 L (21-32) mmol/L Anion Gap 14.0 H 14.0 H (6-13) BUN 10 9 (6-20) mg/dL Creatinine 1.1 H 0.9 (0.4-1.0) mg/dL Estimated GFR (MDRD) 72 L 91 (>89) Glucose 76 91 (70-100) mg/dL Uric Acid 5.4 (2.6-7.2) mg/dL Calcium 8.5 8.7 (8.5-10.3) mg/dL Magnesium (1.7-2.8) mg/dL Total Bilirubin 1.1 H 0.8 (0.2-1.0) mg/dL AST 20 20 (10-42) IU/L ALT 11 12 (10-60) IU/L Alkaline Phosphatase 130 H 128 H (42-121) IU/L Total Protein 6.6 L 6.5 L (6.7-8.2) g/dL Albumin 2.6 L 2.8 L (3.2-5.5) g/dL Globulin 4.0 3.7 (2.1-4.2) g/dL Albumin/Globulin Ratio 0.7 L 0.8 L (1.0-2.2) Urine Creatinine 210.0 Ur Total Protein Timed 68 Protein/Creatinin Ratio 0.3 H 03/28/20 03/27/20 03/27/20 Range/Units 10:08 20:28 10:28 WBC 15.0 H (4.8-10.8) x10^3/uL RBC 3.47 L (4.20-5.40) 10^6/uL Hgb 8.4 L (12.0-16.0) g/dL Hct 28.1 L (37.0-47.0) % MCV 81.0 (81.0-99.0) fL MCH 24.2 L (27.0-31.0) pg MCHC 29.9 L (32.0-36.0) g/dL RDW 19.9 H (12.0-15.0) % Plt Count 209 (130-450) 10^3/uL MPV 9.3 (7.9-10.8) fL Manual Slide Review Sodium (135-145) mmol/L Potassium (3.5-5.0) mmol/L Chloride (101-111) mmol/L Carbon Dioxide (21-32) mmol/L Anion Gap (6-13) BUN (6-20) mg/dL Creatinine (0.4-1.0) mg/dL Estimated GFR (MDRD) (>89) Glucose (70-100) mg/dL Uric Acid (2.6-7.2) mg/dL Calcium (8.5-10.3) mg/dL Magnesium (1.7-2.8) mg/dL Total Bilirubin (0.2-1.0) mg/dL AST (10-42) IU/L ALT (10-60) IU/L Alkaline Phosphatase (42-121) IU/L Total Protein (6.7-8.2) g/dL Albumin (3.2-5.5) g/dL Globulin (2.1-4.2) g/dL Albumin/Globulin Ratio (1.0-2.2) Urine Creatinine 29.1 Cancelled Ur Total Protein Timed < 6 Cancelled Protein/Creatinin Ratio Not Reportable Cancelled Assessment/Plan - Problem List (1) S/P Impression: Routine post op. Doing well from post op stand point. ADAT Pain well managed Bettencourt in place Will delay attempts at ambulation given on magnesium and recent surgery (2) Pre-eclampsia affecting childbirth Impression: Now on magnesium 4g bolus with 1 g/hr infusion Creatinine remains elevated Diuresing well Will check Q6H PIH labs with mag levels given impaired renal function Avoid NSAIDs OK to keep IVF TKO (other than Mg) if tolerating po (3) Elevated serum creatinine Impression: See above (4) Chorioamnionitis Impression: Febrile temp seems to be trending down at present Continue Zosyn Q6H for 24 hours after last febrile temp Checking CBCb Q6H and will monitor WBC Schedule acetaminophen Q8H Hold ibuprofen Anticipate temp with normalize with time from delivery (5) Febrile Impression: See above
[2020-03-28 20:56] LABS: BAND NEUTROPHILS % (MANUAL) 6 %; LYMPHOCYTES # (MANUAL) 1.2 10^3/uL (1.5-3.5); LYMPHOCYTES % (MANUAL) 6 %; METAMYELOCYTES % (MANUAL) 1 %
[2020-03-28 21:03] LABS: PLATELET ESTIMATE, MANUAL NORMAL (130-450,000) (NORMAL); PLATELET MORPHOLOGY NORMAL APPEARANCE (NORMAL)
[2020-03-28 21:04] LABS: DIFFERENTIAL COMMENT MANUAL DIFFERENTIAL
[2020-03-28] MEDS: ACETAMINOPHEN 325 MG TABLET PO PRN (23:13)
[2020-03-29] MEDS: PIPERACILLIN/TAZOBACTAM 3.375 GM in SODIUM CHLORIDE 0.9% MINIBAG 100 ML IV SCH ×4 (00:21→18:38)
[2020-03-29] MEDS: oxyCODONE 5 MG TABLET PO PRN ×6 (00:24→20:53)
[2020-03-29 00:34] LABS: BASOPHILS % (AUTO) 0.4 %; EOSINOPHILS % (AUTO) 0.4 %; HGB - HEMOGLOBIN 7.6 g/dL (12.0-16.0); LYMPHOCYTES % (AUTO) 5.7 %; MEAN CORPUSCULAR HEMOGLOBIN 23.9 pg (27.0-31.0); MEAN CORPUSCULAR HGB CONC 29.8 g/dL (32.0-36.0); MEAN CORPUSCULAR VOLUME 80.2 fL (81.0-99.0); MEAN PLATELET VOLUME 9.3 fL (7.9-10.8); MONOCYTES % (AUTO) 7.9 %; NEUTROPHILS % (AUTO) 84.2 %; PLT - PLATELET COUNT 178 10^3/uL (130-450); RED BLOOD COUNT 3.18 10^6/uL (4.20-5.40); WHITE BLOOD COUNT 22.6 x10^3/uL (4.8-10.8)
[2020-03-29 00:44] LABS: ABNORMAL LYMPHS % (MANUAL) 0 %
[2020-03-29 00:47] LABS: ALBUMIN 2.2 g/dL (3.2-5.5); ALBUMIN/GLOBULIN RATIO 0.7 (1.0-2.2); BILIRUBIN,TOTAL 0.8 mg/dL (0.2-1.0); CALCIUM 8.1 mg/dL (8.5-10.3); CREATININE 0.9 mg/dL (0.4-1.0); MAGNESIUM 2.9 mg/dL (1.7-2.8); TOTAL PROTEIN 5.2 g/dL (6.7-8.2)
[2020-03-29 00:48] LABS: URIC ACID 5.1 mg/dL (2.6-7.2)
[2020-03-29 01:26] LABS: BAND NEUTROPHILS % (MANUAL) 25 %; DIFFERENTIAL COMMENT MANUAL DIFFERENTIAL; LYMPHOCYTES # (MANUAL) 3.4 10^3/uL (1.5-3.5); LYMPHOCYTES % (MANUAL) 15 %; METAMYELOCYTES % (MANUAL) 1 %; MONOCYTES # (MANUAL) 1.1 10^3/uL (0.0-1.0); MYELOCYTES % (MANUAL) 1 %; PLATELET ESTIMATE, MANUAL NORMAL (130-450,000) (NORMAL); RBC MORPHOLOGY (MULTIPLE) NORMAL APPEARANCE (NORMAL)
[2020-03-29] MEDS: ACETAMINOPHEN 325 MG TABLET PO PRN (05:10)
[2020-03-29 06:34] LABS: BASOPHILS # (AUTO) 0.1 10^3/uL (0.0-0.1); BASOPHILS % (AUTO) 0.5 %; EOSINOPHILS % (AUTO) 0.2 %; HGB - HEMOGLOBIN 7.6 g/dL (12.0-16.0); LYMPHOCYTES # (AUTO) 1.4 10^3/uL (1.5-3.5); LYMPHOCYTES % (AUTO) 7.5 %; MEAN CORPUSCULAR HGB CONC 30.2 g/dL (32.0-36.0); MEAN CORPUSCULAR VOLUME 79.5 fL (81.0-99.0); MEAN PLATELET VOLUME 9.4 fL (7.9-10.8); MONOCYTES # (AUTO) 1.3 10^3/uL (0.0-1.0); NEUTROPHILS # (AUTO) 15.4 10^3/uL (1.5-6.6); NEUTROPHILS % (AUTO) 83.8 %; PLT - PLATELET COUNT 167 10^3/uL (130-450); RED BLOOD COUNT 3.17 10^6/uL (4.20-5.40); WHITE BLOOD COUNT 18.4 x10^3/uL (4.8-10.8)
[2020-03-29 06:47] LABS: ALBUMIN/GLOBULIN RATIO 0.6 (1.0-2.2); CALCIUM 7.8 mg/dL (8.5-10.3); CREATININE 0.8 mg/dL (0.4-1.0); MAGNESIUM 3.4 mg/dL (1.7-2.8); TOTAL PROTEIN 5.2 g/dL (6.7-8.2); URIC ACID 4.5 mg/dL (2.6-7.2)
[2020-03-29] MEDS: DOCUSATE SODIUM 100 MG CAPSULE PO SCH ×2 (08:24→20:53)
[2020-03-29] MEDS: SIMETHICONE CHEW 80 MG TABLET PO PRN ×3 (08:24→22:42)
[2020-03-29] MEDS ORDERED: FERRIC GLUCONATE 125 MG in SODIUM CHLORIDE 0.9% 100ML 100 ML IV ONE (09:00)
[2020-03-29] MEDS ORDERED: LIDOCAINE-MPF 2% 5 ML VIAL IM ONE (12:07)
[2020-03-29] MEDS ORDERED: HYDROmorphone 1 MG/ML CARPUJECT IVP ONE (12:07)
[2020-03-29] MEDS ORDERED: ACETAMINOPHEN 1,000 MG/100 ML 100 ML IV ONE (12:07)
[2020-03-29] MEDS ORDERED: fentaNYL 100 MCG/2 ML VIAL EP ONE (12:07)
[2020-03-29] MEDS ORDERED: TRANEXAMIC ACID 1,000 MG/10 ML VIAL IV ONE (12:40)
[2020-03-29] MEDS: ACETAMINOPHEN 500 MG TABLET PO SCH ×2 (12:49→20:53)
[2020-03-29 13:23] LABS: BASOPHILS # (AUTO) 0.1 10^3/uL (0.0-0.1); BASOPHILS % (AUTO) 0.4 %; EOSINOPHILS # (AUTO) 0.1 10^3/uL (0.0-0.7); EOSINOPHILS % (AUTO) 0.3 %; HGB - HEMOGLOBIN 7.5 g/dL (12.0-16.0); LYMPHOCYTES # (AUTO) 1.4 10^3/uL (1.5-3.5); LYMPHOCYTES % (AUTO) 8.6 %; MEAN CORPUSCULAR HEMOGLOBIN 23.6 pg (27.0-31.0); MEAN CORPUSCULAR HGB CONC 29.3 g/dL (32.0-36.0); MEAN CORPUSCULAR VOLUME 80.5 fL (81.0-99.0); MEAN PLATELET VOLUME 9.1 fL (7.9-10.8); MONOCYTES # (AUTO) 1.2 10^3/uL (0.0-1.0); MONOCYTES % (AUTO) 7.1 %; NEUTROPHILS # (AUTO) 13.6 10^3/uL (1.5-6.6); NEUTROPHILS % (AUTO) 82.5 %; PLT - PLATELET COUNT 152 10^3/uL (130-450); RED BLOOD COUNT 3.18 10^6/uL (4.20-5.40); WHITE BLOOD COUNT 16.4 x10^3/uL (4.8-10.8)
--- NOTE | 2020-03-29 17:14 | PROVIDER PROGRESS NOTE ---
Subjective - Prog Note Date Prog Note Date: 03/29/20 Prog Note Time: 11:30 - Subjective Subjective: Patient is doing well. BPs wnl and no febrile temps overnight. Downward trend in creatinine. Pain well managed. Tolerating po. Has not yet been Up and OOB. Bettencourt remains in place. Minimal lochia Objective - Vital Signs/Intake & Output Vital Signs: Vital Signs x48h Temp Pulse Resp BP Pulse Ox 03/29/20 16:51 92 17 122/72 99 03/29/20 15:00 97.9 F 95 17 128/68 98 03/29/20 13:00 98.6 F 105 H 17 134/69 H 99 03/29/20 11:00 98.1 F 98 18 96/81 H 99 03/29/20 09:45 98.2 F 123/73 Intake & Output: Intake & Output 03/26/20 03/27/20 03/28/20 03/29/20 23:59 23:59 23:59 23:59 Intake Total 500 2321.667 2303.75 Output Total 200 3685 5510 Balance 300 -1363.333 -3206.25 - Objective General Appearance: positive: No acute distress Respiratory: positive: No respiratory distress, Breath sounds nml Cardiovascular: positive: Regular rate & rhythm Peripheral Pulses: 2+ Radial (R), 2+ Radial (L) Abdomen: positive: Other (appropriately tender. ND and soft. Dressing CDI) Skin: positive: Color nml Extremities: positive: Non-tender, Pedal edema Neurologic/Psychiatric: positive: Oriented x3 - Lab Results Fish Bones: 03/29/20 13:20 03/29/20 06:25 Other Labs: Lab Results x24hrs 03/29/20 03/29/20 03/29/20 Range/Units 13:20 06:25 06:25 WBC 16.4 H (4.8-10.8) x10^3/uL RBC 3.18 L (4.20-5.40) 10^6/uL Hgb 7.5 L (12.0-16.0) g/dL Hct 25.6 L (37.0-47.0) % MCV 80.5 L (81.0-99.0) fL MCH 23.6 L (27.0-31.0) pg MCHC 29.3 L (32.0-36.0) g/dL RDW 20.0 H (12.0-15.0) % Plt Count 152 (130-450) 10^3/uL MPV 9.1 (7.9-10.8) fL Neut # (Auto) 13.6 H Lymph # (Auto) 1.[address] # (Auto) 1.2 H Eos # (Auto) 0.1 Baso # (Auto) 0.1 Absolute Nucleated RBC 0.00 Total Counted Band Neuts % (Manual) (0 - 10) % Abnorm Lymph % (Manual) % Metamyelocytes % ( - 0) % Myelocytes % ( - 0) % Nucleated RBC % 0.0 Neutrophils # (Manual) (1.5-6.6) 10^3/uL Lymphocytes # (Manual) (1.5-3.5) 10^3/uL Monocytes # (Manual) (0.0-1.0) 10^3/uL Eosinophils # (Manual) (0-0.7) 10^3/uL Basophils # (Manual) (0-0.1) 10^3/uL Differential Comment Manual Slide Review WBC Morphology (NORMAL) Platelet Estimate (NORMAL) Platelet Morphology (NORMAL) RBC Morph Micro Appear (NORMAL) Fibrinogen (220-496) mg/dL Sodium 131 L (135-145) mmol/L Potassium 3.6 (3.5-5.0) mmol/L Chloride 103 (101-111) mmol/L Carbon Dioxide 22 (21-32) mmol/L Anion Gap 6.0 (6-13) BUN 7 (6-20) mg/dL Creatinine 0.8 (0.4-1.0) mg/dL Estimated GFR (MDRD) 104 (>89) Glucose 99 (70-100) mg/dL Uric Acid 4.5 (2.6-7.2) mg/dL Calcium 7.8 L (8.5-10.3) mg/dL Magnesium 3.4 H (1.7-2.8) mg/dL Total Bilirubin 1.0 (0.2-1.0) mg/dL AST 25 (10-42) IU/L ALT 12 (10-60) IU/L Alkaline Phosphatase 94 (42-121) IU/L Lactate Dehydrogenase 310 H (91-225) IU/L Total Protein 5.2 L (6.7-8.2) g/dL Albumin 2.0 L (3.2-5.5) g/dL Globulin 3.2 (2.1-4.2) g/dL Albumin/Globulin Ratio 0.6 L (1.0-2.2) 03/29/20 03/29/20 03/29/20 Range/Units 06:25 06:25 00:25 WBC 18.4 H (4.8-10.8) x10^3/uL RBC 3.17 L (4.20-5.40) 10^6/uL Hgb 7.6 L (12.0-16.0) g/dL Hct 25.2 L (37.0-47.0) % MCV 79.5 L (81.0-99.0) fL MCH 24.0 L (27.0-31.0) pg MCHC 30.2 L (32.0-36.0) g/dL RDW 20.0 H (12.0-15.0) % Plt Count 167 (130-450) 10^3/uL MPV 9.4 (7.9-10.8) fL Neut # (Auto) 15.4 H Lymph # (Auto) 1.[address] # (Auto) 1.3 H Eos # (Auto) 0.0 Baso # (Auto) 0.1 Absolute Nucleated RBC 0.00 Total Counted Band Neuts % (Manual) (0 - 10) % Abnorm Lymph % (Manual) % Metamyelocytes % ( - 0) % Myelocytes % ( - 0) % Nucleated RBC % 0.0 Neutrophils # (Manual) (1.5-6.6) 10^3/uL Lymphocytes # (Manual) (1.5-3.5) 10^3/uL Monocytes # (Manual) (0.0-1.0) 10^3/uL Eosinophils # (Manual) (0-0.7) 10^3/uL Basophils # (Manual) (0-0.1) 10^3/uL Differential Comment Manual Slide Review WBC Morphology (NORMAL) Platelet Estimate (NORMAL) Platelet Morphology (NORMAL) RBC Morph Micro Appear (NORMAL) Fibrinogen 393 (220-496) mg/dL Sodium 132 L (135-145) mmol/L Potassium 3.8 (3.5-5.0) mmol/L Chloride 104 (101-111) mmol/L Carbon Dioxide 20 L (21-32) mmol/L Anion Gap 8.0 (6-13) BUN 8 (6-20) mg/dL Creatinine 0.9 (0.4-1.0) mg/dL Estimated GFR (MDRD) 91 (>89) Glucose 114 H (70-100) mg/dL Uric Acid (2.6-7.2) mg/dL Calcium 8.1 L (8.5-10.3) mg/dL Magnesium 2.9 H (1.7-2.8) mg/dL Total Bilirubin 0.8 (0.2-1.0) mg/dL AST 24 (10-42) IU/L ALT 11 (10-60) IU/L Alkaline Phosphatase 99 (42-121) IU/L Lactate Dehydrogenase (91-225) IU/L Total Protein 5.2 L (6.7-8.2) g/dL Albumin 2.2 L (3.2-5.5) g/dL Globulin 3.0 (2.1-4.2) g/dL Albumin/Globulin Ratio 0.7 L (1.0-2.2) 03/29/20 03/29/20 03/29/20 Range/Units 00:25 00:25 00:25 WBC (4.8-10.8) x10^3/uL RBC (4.20-5.40) 10^6/uL Hgb (12.0-16.0) g/dL Hct (37.0-47.0) % MCV (81.0-99.0) fL MCH (27.0-31.0) pg MCHC (32.0-36.0) g/dL RDW (12.0-15.0) % Plt Count (130-450) 10^3/uL MPV (7.9-10.8) fL Neut # (Auto) Lymph # (Auto) Lane # (Auto) Eos # (Auto) Baso # (Auto) Absolute Nucleated RBC Total Counted Band Neuts % (Manual) (0 - 10) % Abnorm Lymph % (Manual) % Metamyelocytes % ( - 0) % Myelocytes % ( - 0) % Nucleated RBC % Neutrophils # (Manual) (1.5-6.6) 10^3/uL Lymphocytes # (Manual) (1.5-3.5) 10^3/uL Monocytes # (Manual) (0.0-1.0) 10^3/uL Eosinophils # (Manual) (0-0.7) 10^3/uL Basophils # (Manual) (0-0.1) 10^3/uL Differential Comment Manual Slide Review WBC Morphology (NORMAL) Platelet Estimate (NORMAL) Platelet Morphology (NORMAL) RBC Morph Micro Appear (NORMAL) Fibrinogen 383 (220-496) mg/dL Sodium (135-145) mmol/L Potassium (3.5-5.0) mmol/L Chloride (101-111) mmol/L Carbon Dioxide (21-32) mmol/L Anion Gap (6-13) BUN (6-20) mg/dL Creatinine (0.4-1.0) mg/dL Estimated GFR (MDRD) (>89) Glucose (70-100) mg/dL Uric Acid 5.1 (2.6-7.2) mg/dL Calcium (8.5-10.3) mg/dL Magnesium (1.7-2.8) mg/dL Total Bilirubin (0.2-1.0) mg/dL AST 25 (10-42) IU/L ALT (10-60) IU/L Alkaline Phosphatase (42-121) IU/L Lactate Dehydrogenase 305 H (91-225) IU/L Total Protein (6.7-8.2) g/dL Albumin (3.2-5.5) g/dL Globulin (2.1-4.2) g/dL Albumin/Globulin Ratio (1.0-2.2) 03/29/20 03/28/20 03/28/20 Range/Units 00:25 18:25 18:25 WBC 22.6 H 20.4 H (4.8-10.8) x10^3/uL RBC 3.18 L 3.57 L (4.20-5.40) 10^6/uL Hgb 7.6 L 8.6 L (12.0-16.0) g/dL Hct 25.5 L 28.8 L (37.0-47.0) % MCV 80.2 L 80.7 L (81.0-99.0) fL MCH 23.9 L 24.1 L (27.0-31.0) pg MCHC 29.8 L 29.9 L (32.0-36.0) g/dL RDW 20.0 H 20.1 H (12.0-15.0) % Plt Count 178 198 (130-450) 10^3/uL MPV 9.3 10.4 (7.9-10.8) fL Neut # (Auto) Not Reportable Not Reportable Lymph # (Auto) Not Reportable Not Reportable Lane # (Auto) Not Reportable Not Reportable Eos # (Auto) Not Reportable Not Reportable Baso # (Auto) Not Reportable Not Reportable Absolute Nucleated RBC Not Reportable Not Reportable Total Counted 100 100 Band Neuts % (Manual) 25 H 6 (0 - 10) % Abnorm Lymph % (Manual) 0 0 % Metamyelocytes % 1 H 1 H ( - 0) % Myelocytes % 1 H ( - 0) % Nucleated RBC % Not Reportable Not Reportable Neutrophils # (Manual) 17.6 H 18.0 H (1.5-6.6) 10^3/uL Lymphocytes # (Manual) 3.4 1.2 L (1.5-3.5) 10^3/uL Monocytes # (Manual) 1.1 H 1.0 (0.0-1.0) 10^3/uL Eosinophils # (Manual) 0.0 0.0 (0-0.7) 10^3/uL Basophils # (Manual) 0.0 0.0 (0-0.1) 10^3/uL Differential Comment MANUAL DIFFERENTIAL MANUAL DIFFERENTIAL Manual Slide Review Indicated WBC Morphology NORMAL APPEARANCE (NORMAL) Platelet Estimate NORMAL (130-450,000) NORMAL (130-450,000) (NORMAL) Platelet Morphology NORMAL APPEARANCE (NORMAL) RBC Morph Micro Appear NORMAL APPEARANCE 3+ ANISOCYTOSIS (NORMAL) Fibrinogen (220-496) mg/dL Sodium (135-145) mmol/L Potassium (3.5-5.0) mmol/L Chloride (101-111) mmol/L Carbon Dioxide (21-32) mmol/L Anion Gap (6-13) BUN (6-20) mg/dL Creatinine 1.1 H (0.4-1.0) mg/dL Estimated GFR (MDRD) 72 L (>89) Glucose (70-100) mg/dL Uric Acid (2.6-7.2) mg/dL Calcium (8.5-10.3) mg/dL Magnesium (1.7-2.8) mg/dL Total Bilirubin (0.2-1.0) mg/dL AST 25 (10-42) IU/L ALT (10-60) IU/L Alkaline Phosphatase (42-121) IU/L Lactate Dehydrogenase (91-225) IU/L Total Protein (6.7-8.2) g/dL Albumin (3.2-5.5) g/dL Globulin (2.1-4.2) g/dL Albumin/Globulin Ratio (1.0-2.2) 11/18/20 Range/Units 18:25 WBC (4.8-10.8) x10^3/uL RBC (4.20-5.40) 10^6/uL Hgb (12.0-16.0) g/dL Hct (37.0-47.0) % MCV (81.0-99.0) fL MCH (27.0-31.0) pg MCHC (32.0-36.0) g/dL RDW (12.0-15.0) % Plt Count (130-450) 10^3/uL MPV (7.9-10.8) fL Neut # (Auto) Lymph # (Auto) Lane # (Auto) Eos # (Auto) Baso # (Auto) Absolute Nucleated RBC Total Counted Band Neuts % (Manual) (0 - 10) % Abnorm Lymph % (Manual) % Metamyelocytes % ( - 0) % Myelocytes % ( - 0) % Nucleated RBC % Neutrophils # (Manual) (1.5-6.6) 10^3/uL Lymphocytes # (Manual) (1.5-3.5) 10^3/uL Monocytes # (Manual) (0.0-1.0) 10^3/uL Eosinophils # (Manual) (0-0.7) 10^3/uL Basophils # (Manual) (0-0.1) 10^3/uL Differential Comment Manual Slide Review WBC Morphology (NORMAL) Platelet Estimate (NORMAL) Platelet Morphology (NORMAL) RBC Morph Micro Appear (NORMAL) Fibrinogen (220-496) mg/dL Sodium (135-145) mmol/L Potassium (3.5-5.0) mmol/L Chloride (101-111) mmol/L Carbon Dioxide (21-32) mmol/L Anion Gap (6-13) BUN (6-20) mg/dL Creatinine (0.4-1.0) mg/dL Estimated GFR (MDRD) (>89) Glucose (70-100) mg/dL Uric Acid (2.6-7.2) mg/dL Calcium (8.5-10.3) mg/dL Magnesium 1.2 L (1.7-2.8) mg/dL Total Bilirubin (0.2-1.0) mg/dL AST (10-42) IU/L ALT (10-60) IU/L Alkaline Phosphatase (42-121) IU/L Lactate Dehydrogenase (91-225) IU/L Total Protein (6.7-8.2) g/dL Albumin (3.2-5.5) g/dL Globulin (2.1-4.2) g/dL Albumin/Globulin Ratio (1.0-2.2) Assessment/Plan - Problem List (1) S/P Impression: Afebrile. Pain well managed. Tolerating po. Minimal lochia. - IV iron this am -DC Magnesium at 14:50 -BPS wnl on no medications -Cont Zosyn until afebrile for 24 hours POST OP: DC [place] when magnesium discontinued Encouraged ambulation when Mg infusion discontinued Cont in-patient care
[2020-03-29 19:02] LABS: BASOPHILS # (AUTO) 0.1 10^3/uL (0.0-0.1); BASOPHILS % (AUTO) 0.5 %; EOSINOPHILS # (AUTO) 0.1 10^3/uL (0.0-0.7); EOSINOPHILS % (AUTO) 0.6 %; HGB - HEMOGLOBIN 7.9 g/dL (12.0-16.0); LYMPHOCYTES # (AUTO) 1.5 10^3/uL (1.5-3.5); LYMPHOCYTES % (AUTO) 8.7 %; MEAN CORPUSCULAR HEMOGLOBIN 24.7 pg (27.0-31.0); MEAN CORPUSCULAR HGB CONC 30.6 g/dL (32.0-36.0); MEAN CORPUSCULAR VOLUME 80.6 fL (81.0-99.0); MEAN PLATELET VOLUME 9.5 fL (7.9-10.8); MONOCYTES # (AUTO) 1.5 10^3/uL (0.0-1.0); MONOCYTES % (AUTO) 8.8 %; NEUTROPHILS # (AUTO) 13.7 10^3/uL (1.5-6.6); NEUTROPHILS % (AUTO) 80.3 %; PLT - PLATELET COUNT 166 10^3/uL (130-450); RED CELL DISTRIBUTION WIDTH 19.9 % (12.0-15.0)
[2020-03-30] MEDS: oxyCODONE 5 MG TABLET PO PRN ×4 (00:33→14:08)
[2020-03-30] MEDS: PIPERACILLIN/TAZOBACTAM 3.375 GM in SODIUM CHLORIDE 0.9% MINIBAG 100 ML IV SCH (00:35)
[2020-03-30] MEDS: ACETAMINOPHEN 500 MG TABLET PO SCH ×2 (05:36→14:08)
[2020-03-30] MEDS: SIMETHICONE CHEW 80 MG TABLET PO PRN ×3 (06:43→14:08)
[2020-03-30] MEDS: DOCUSATE SODIUM 100 MG CAPSULE PO SCH (09:44)
--- NOTE | 2020-03-30 13:30 | PROVIDER PROGRESS NOTE ---
Subjective - Prog Note Date Prog Note Date: 03/30/20 Prog Note Time: 13:27 - Subjective Subjective: Patient is doing well. Up ad ambulating, tolerating po, pain well managed, voiding. Minimal lochia. Afebrile and normal BPS off magnesium. Positional RAMEY resolved. Infant cleared for DC this afternoon. Patient also desires discharge. Objective - Vital Signs/Intake & Output Reviewed Vital Signs: Yes Vital Signs: Vital Signs x48h Temp Pulse Resp BP Pulse Ox 03/30/20 12:01 99.1 F 97 16 134/84 H 100 03/30/20 09:29 97.9 F 97 19 124/74 99 Intake & Output: Intake & Output 03/27/20 03/28/20 03/29/20 03/30/20 23:59 23:59 23:59 23:59 Intake Total 500 2321.667 4503.75 100 Output Total 200 3685 7485 1900 Balance 300 -1363.333 -2981.25 -1800 - Objective General Appearance: positive: No acute distress Neck: positive: Nml inspection Respiratory: positive: No respiratory distress, Breath sounds nml Cardiovascular: positive: Regular rate & rhythm Abdomen: positive: Other (S&NT/ND. FF below umni. Dressing removed. Incision line CDI) Skin: positive: Color nml Neurologic/Psychiatric: positive: Oriented x3 - Lab Results Fish Bones: 03/29/20 18:55 03/29/20 06:25 Other Labs: Lab Results x24hrs 03/29/20 03/27/20 Range/Units 18:55 09:10 WBC 17.0 H (4.8-10.8) x10^3/uL RBC 3.20 L (4.20-5.40) 10^6/uL Hgb 7.9 L (12.0-16.0) g/dL Hct 25.8 L (37.0-47.0) % MCV 80.6 L (81.0-99.0) fL MCH 24.7 L (27.0-31.0) pg MCHC 30.6 L (32.0-36.0) g/dL RDW 19.9 H (12.0-15.0) % Plt Count 166 (130-450) 10^3/uL MPV 9.5 (7.9-10.8) fL Neut # (Auto) 13.7 H (1.5-6.6) 10^3/uL Lymph # (Auto) 1.5 (1.5-3.5) 10^3/uL [place] # (Auto) 1.5 H (0.0-1.0) 10^3/uL Eos # (Auto) 0.1 (0.0-0.7) 10^3/uL Baso # (Auto) 0.1 (0.0-0.1) 10^3/uL Absolute Nucleated RBC 0.00 x10^3/uL Nucleated RBC % 0.0 /100WBC Crossmatch IS Only See Detail Assessment/Plan - Problem List (1) S/P Impression: PPD#2 s/p CS Doing well BPs wnl off magnesium RAMEY resolved Afebile > 24 hours Meeting goals for DC Routine DC instrucitons given FU in one week for BP and incision check
[2020-03-30 15:52] VITALS: BP 127/81
--- NOTE | 2020-03-30 15:57 | Labor Flowsheet ---
Labor Flowsheet Datetime Report Generated by CPN: 03/30/2020 15:57 Datetime: 03/28/2020 14:19 Patient Care Comments: Patient off monitor and being taken to OR for primary Datetime: 03/28/2020 14:18 UTERINE ACTIVITY Monitor Mode: External Frequency (min): 2-3.5 Quality: Strong Duration (sec): 80-90 Pattern: Normal: <= 5 Contractions in 10 Minutes Resting Tone (Palpate): Relaxed ASSESSMENT A Monitor Mode: Telemetry FHR Baseline Rate : 180 FHR Baseline Changes: Tachycardia Variability: Minimal - Undetectable to <=5 bpm Accelerations: None Decelerations: Late Category: Category II Oxygen Method: Room Air Datetime: 03/28/2020 14:15 VITAL SIGNS NBP Sys/Kaila/Mean (mmHg): 97 : 49 : 60 Pulse: 129 LaborFlag: Labor Datetime: 03/28/2020 14:09 SpO2 (%): 99 Datetime: 03/28/2020 14:00 Pain Presence: None/Denies Anesthesia Level Check: T10- Umbilicus COMMUNICATION Communication: Provider at Bedside Provider Notified (Name): Dr. Don Communication Comments: Provider at bedside to consent patient for Datetime: 03/28/2020 13:47 Respirations: 20 Temperature (C): 38.4 Datetime: 03/28/2020 13:20 MEDICATIONS Pitocin (milliunits): Increased to @ 7 Datetime: 03/28/2020 13:14 STAGE 2 Stage 2 Comments: Provider unable to reduce anterior lip with trial pushes Datetime: 03/28/2020 13:10 VAGINAL EXAM Dilatation (cm): 9.5 Exam by: A Almita, CNM, HOME BUILDER Datetime: 03/28/2020 12:30 Medication Comments: New epidural bag hung Datetime: 03/28/2020 12:05 PATIENT CARE IV/Blood Work: New IV Bag Hung Datetime: 03/28/2020 11:51 Effacement (%): 100 Datetime: 03/28/2020 11:32 Patient Position/Activity: Left Lateral Datetime: 03/28/2020 10:36 Pain Assessment Comments: Pressure in head is gone per patient Datetime: 03/28/2020 10:17 Vital Sign Comments: Manual BP, L upper arm Datetime: 03/28/2020 10:13 Station: 0 Datetime: 03/28/2020 10:01 Analgesics/Sedatives: Tylenol (mg) @ 1000 Datetime: 03/28/2020 09:26 Monitor Interventions for FHR: Ultrasound Adjusted Datetime: 03/28/2020 09:14 Monitor Interventions for UA: [place] Adjusted Datetime: 03/28/2020 07:39 I/O Interventions: [place] Cath Inserted Datetime: 03/28/2020 06:30 Stage of : Labor Datetime: 03/28/2020 06:11 ANESTHESIA Anesthesia Plans: Epidural Datetime: 03/28/2020 06:06 Anesthesia Interview: E Epidural Positioning: Sitting Epidural Procedure: Cath Placed Datetime: 03/28/2020 05:56 Pitocin Checklist: At Least 1 Acceleration of 15 bpm x 15 Seconds in 30 Minutes or Adequate Variabi lity; No More than 5 Uterine Contractions in 10 Minutes for any 20 Minute Interval; Uterus Palpates S oft between Contractions Datetime: 03/28/2020 05:10 Membrane Status: Ruptured Datetime: 03/28/2020 04:48 Temperature Route: Axillary Datetime: 03/28/2020 02:35 Membrane Comments: fore bag broken Datetime: 03/28/2020 01:26 PAIN Pain Scale: 7 Pain Type: Cramping; Contraction Pain Location: Abdomen; Back Pain Goal: 4 Pain Relief Measures: Comfort Measures Datetime: 03/28/2020 00:50 Vaginal Exam Comments: Bulging BOW Datetime: 03/27/2020 19:12 Notification Reason: Status Update; Pain Datetime: 03/27/2020 17:34 Membranes Rupture Method: Artificial Amniotic Fluid Color: Clear Amniotic Fluid Amount: Large Datetime: 03/27/2020 17:30 Contraction Comments: Provider aware of pt being tachysystole. Going in to assess her at 1730. Datetime: 03/27/2020 16:29 Pain Coping: Talking Through Contractions; Breathing Through Contractions; Declines Medication or E pidural Datetime: 03/27/2020 14:30 Nurse Giving Report: Lan Salguero RN Nurse Receiving Report: Aileen Ramirez RN Connect Comments: This RN assumed care of patient. Report received from Lan Salguero RN. Datetime: 03/27/2020 13:21 Cervical Ripening Agents: Cytotec @ 50 Datetime: 03/27/2020 12:00 Comments: period of minimal variability
--- NOTE | 2020-04-04 08:45 | DISCHARGE SUMMARY ---
"Discharge Summary Admit Date: 03/27/20 Discharge Date: 03/30/20 Discharging Provider: Arian Discharge Disposition: 01 Home, Self Care - DIAGNOSES Admission Diagnoses: IUP at 41+0 wga Severe anemia of C.diff; treated prior to admission Discharge Diagnoses with Status of Each Condition: Same and delivery of term gestation via Chorioamnionitis - HPI History of Present Illness: HPI: This 25yo @ 41.0wks gestation by LMP c/w 8.6wk U/S presented to [facility] on 03/27/2020 at 0800 for post-dates induction of labor. She denies vaginal bleeding or leakage of fluid. Denies contractions and reports +FM. She states she is feeling well and denies concerns to complaints today. States she is ready to have a baby. Her is supportive at the bedside. She has been a patient of [facility] since her transfer of care from [facility] at 35.1wks gestation. Her has been complicated by anemia complicating and she is has received 3 IV iron transfusions in the third trimester which have improved her Hgb/Hct slightly. She reports feeling improvement in degree of fatigue and feeling better overall following her iron transfusions. Her FAS revealed persistent right renal pyelectasis. In addition, she was diagnosed with C.diff 01/26/2020 and was treated with Vancomycin x 10 days with resolution of symptoms. Dating criteria: LMP 05/28/2019 Initial ultrasound at 8.6wks c/w LMP dating Serial exams - agree OB Hx: G1: Current Medications: PNV, FeSO4, Claratin PRN; albuterol inhalor PRN Allergies: Soy (Critical) PMHx: Obesity, iron deficiency anemia, asthma Surgical Hx: LSC appy, not ruptured Social Hx: Former smoker. No ETOH or IVDA. 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 Family Hx: Heart disease- PGM, Father; HTN - PGM, Father; Diabetes - Father, PGM course: Initial U/S: 08/15/2019 @ 8.6wks c/w LMP dating A pos/Rubella immune SEVERE ANEMIA - IV Fe transfusion x 3. 08/23/2019 H/H: 11.8/35.1 12/28/2019 H/H: 7.6/24.5 12/30/2019 H/H 7.9/25.5 01/24/2020 H/H 7.5/24.7 02/16/2020 H/H 8.0/27.9 03/07/2020 H/H 8.1/27.7 03/27/2020 H/H 8.7/29.9 12/30/2019 Iron 41 TIBC 556 01/24/2020 Iron 32, TIBC 549 02/16/2020 Iron 38, TIBC 742 - CONSULTS | PROCEDURES Consultations: Obstetrics Procedures: Primary low transverse on 03/28/2020 - HOSPITAL COURSE Hospital Course: This 25yo admitted @ 41.0wks gestation by LMP c/w 8.6wk U/S presented to [facility] on 03/27/2020 at 0800 for post-dates induction of labor. SVE 3/ 50/-3, posterior, medium consistency at admission. Given misoprostol 50 mcg x2. She then underwent artifical rupture of membranes on 03/27/2020 at approximately 17:30. She was start onpitocin, reaching a max dose of 7 mU/min. During the course of the induction she developed mild range blood pressures. She became febrile and tracing showed tachycardia. She was started on Unasyn for choriomanionitis. Creatinine doubled in value. heart rate was sustained in the 180s with loss of reactivity. Despite adequate contractions with pitocin augmentation, she did not progress past 9 cm over 2 hours. Given the worsening pre-eclampsia, chorioamnionitis, persistent tachycardia, and failure to progress, the decision was made to proceed with delivery. Written informed consent was obtained. Patient underwent a primary low trasnverse delivering a viable female weighing 4310 g and Apgars of 3/6/8. Procedure was uncomplicated and well tolerated. Patient was started on magnesium post op and was on IV piperacillin/tazobactam for 24 hrs following her last febrile temperature after delivery. Creatinine normalized during the postop period. Patient received a dose of IV ferric gluconate post-. Blood pressures were in normal range in period. By POD #2, patient and were meeting goals for discharge and were discharged to home. - ALLERGIES Allergies/Adverse Reactions: Allergies Allergy/AdvReac Type Severity Reaction Status Date / Time No Known Drug Allergies Allergy Verified 10/28/20 10:17 - MEDICATIONS Home Medications: Ambulatory Orders Medication Instructions Recorded Confirmed Acetaminophen [Tylenol] 650 mg PO Q6H PRN #90 tablet 03/30/20 Docusate Sodium 100Mg Capsule 100 - 200 mg PO BID PRN #60 capsule 03/30/20 [Colace 100Mg Capsule] oxyCODONE [Roxicodone] 5 mg PO Q4H PRN #24 tablet 03/30/20 oxyCODONE [Roxicodone] 5 mg PO Q4H PRN #24 tablet 04/03/20 - LABS Result Diagrams: 03/29/20 18:55 03/29/20 06:25 - FOLLOW UP Follow Up: [address] Don - TIME SPENT Time Spent in Discharge (Minutes): 30"
== END 2020-03-30 15:50 | disposition home or self-care (01) | DRG 786 ==
LOC: WFO 07:57 → FBP 08:01 → WFO 08:23 → FBP 08:24 → UNDOADMIN 08:24 → FBP 08:24 → INTOOBSV 17:40 → OBSVTOIN 17:40 → FBP 03-28 15:45 → UNDODISIN 03-30 15:50
PROVIDERS: ADMIT Nurse Practitioner Obstetrics & Gynecology; ATTEND Obstetrics & Gynecology
PROC: 10D00Z1 Extraction of Products of Conception, Low, Open Approach (ICD-10-PCS; principal; 2020-03-27)
PROC: 0UB10ZZ Excision of Left Ovary, Open Approach (ICD-10-PCS; 2020-03-27)
PROC: 10907ZC Drainage of Amniotic Fluid, Therapeutic from Products of Conception, Via Natural or Artificial Opening (ICD-10-PCS; 2020-03-27)
DX: O48.0 Post-term pregnancy (principal); O41.1230 Chorioamnionitis, third trimester, not applicable or unspecified; O14.04 Mild to moderate pre-eclampsia, complicating childbirth; O13.4 Gestational [pregnancy-induced] hypertension without significant proteinuria, complicating childbirth; O62.0 Primary inadequate contractions; O76 Abnormality in fetal heart rate and rhythm complicating labor and delivery; Z3A.41 41 weeks gestation of pregnancy; Z37.0 Single live birth; O99.62 Diseases of the digestive system complicating childbirth; K21.9 Gastro-esophageal reflux disease without esophagitis; O99.214 Obesity complicating childbirth; E66.9 Obesity, unspecified; O99.02 Anemia complicating childbirth; D50.9 Iron deficiency anemia, unspecified; O99.52 Diseases of the respiratory system complicating childbirth; J45.909 Unspecified asthma, uncomplicated; Z86.19 Personal history of other infectious and parasitic diseases; Z87.891 Personal history of nicotine dependence; Z79.899 Other long term (current) drug therapy
CPT/HCPCS: 36415; 80053; 82565; 82570; 83615; 83735; 84156; 84450; 84550; 85025; 85027; 85384; 86850; 86900; 86901; 86920; 88307; A9270; G0378; J0131; J1170; J2916; J3010; J7120; J3475

== ENCOUNTER 2020-06-05 09:07 | Emergency (ER) | payer OTHER ==
[2020-06-05] MEDS ORDERED: DEXAMETHASONE 10 MG/ML VIAL IVP STA (10:21)
[2020-06-05] MEDS ORDERED: SODIUM CHLORIDE 0.9% 1,000 ML IV STA (10:21)
[2020-06-05 10:43] LABS: BASOPHILS # (AUTO) 0.1 10^3/uL (0.0-0.1); BASOPHILS % (AUTO) 0.6 %; EOSINOPHILS # (AUTO) 0.1 10^3/uL (0.0-0.7); EOSINOPHILS % (AUTO) 0.8 %; HGB - HEMOGLOBIN 9.6 g/dL (12.0-16.0); LYMPHOCYTES # (AUTO) 2.4 10^3/uL (1.5-3.5); LYMPHOCYTES % (AUTO) 19.2 %; MEAN CORPUSCULAR HEMOGLOBIN 24.2 pg (27.0-31.0); MEAN CORPUSCULAR HGB CONC 30.5 g/dL (32.0-36.0); MEAN CORPUSCULAR VOLUME 79.5 fL (81.0-99.0); MONOCYTES # (AUTO) 1.3 10^3/uL (0.0-1.0); MONOCYTES % (AUTO) 10.5 %; NEUTROPHILS # (AUTO) 8.5 10^3/uL (1.5-6.6); NEUTROPHILS % (AUTO) 67.5 %; PLT - PLATELET COUNT 394 10^3/uL (130-450); RED BLOOD COUNT 3.96 10^6/uL (4.20-5.40); WHITE BLOOD COUNT 12.6 x10^3/uL (4.8-10.8)
[2020-06-05 10:44] LABS: BILIRUBIN,URINE NEGATIVE (NEGATIVE); GLUCOSE, URINE (UA) NEGATIVE (NEGATIVE); KETONES,URINE (UA) NEGATIVE (NEGATIVE); LEUKOCYTE ESTERASE, URINE NEGATIVE (NEGATIVE); NITRITE,URINE NEGATIVE (NEGATIVE); OCCULT BLOOD,URINE NEGATIVE (NEGATIVE); PROTEIN,URINE NEGATIVE (NEGATIVE); UROBILINOGEN,URINE 0.2 (NORMAL) E.U./dL (NORMAL)
[2020-06-05 10:46] LABS: CLARITY,URINE CLEAR (CLEAR); HCG UR QUAL NEGATIVE
[2020-06-05 10:55] LABS: ALBUMIN 3.5 g/dL (3.2-5.5); ALBUMIN/GLOBULIN RATIO 0.9 (1.0-2.2); BILIRUBIN,TOTAL 0.7 mg/dL (0.2-1.0); CALCIUM 8.9 mg/dL (8.5-10.3); CREATININE 1.1 mg/dL (0.4-1.0); TOTAL PROTEIN 7.3 g/dL (6.7-8.2)
--- NOTE | 2020-06-05 11:10 | ED Physician Documentation ---
PD HPI HEENT - Stated complaint Stated Complaint: RAMEY,NAUSEA,FATIGUE - Chief complaint Chief Complaint: Fever - History obtained from History obtained from: Patient - History of Present Illness Timing - onset: How many days ago (5) Timing - duration: Days (5) Timing - details: Gradual onset, Still present Location: Throat Improves: Medication Worsens: Swalllowing Associated symptoms: Fever, Congestion, Swollen nodes, Headache Similar symptoms before: Diagnosis (strep) Recently seen: Clinic - Additional information Additional information: Previously well 25-year-old female developed a sore throat was seen at the [facility] tested positive for strep negative for coronavirus and was started on penicillin VK. Despite this she has had persistence of the fever and comes in now to the emerge department with persistent fever and sore throat. Review of Systems Constitutional: reports: Fever, Chills Eyes: denies: Decreased vision Ears: denies: Ear pain Nose: reports: Congestion. denies: Rhinorrhea / runny nose Throat: reports: Sore throat Cardiac: denies: Chest pain / pressure, Palpitations Respiratory: reports: Cough (Mild). 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 : None HEENT: None Musculoskeletal: None Derm: None - Past Surgical History Past Surgical History: Yes General: Appendectomy /SENIOR SECURITY ARCHITECT: section - Present Medications Home Medications: Ambulatory Orders Medication Instructions Recorded Confirmed Acetaminophen [Tylenol] 650 mg PO Q6H PRN #90 tablet 03/30/20 06/05/20 Amox/Clav 875/125 [Augmentin] 1 each PO Q12H #20 tablet 06/05/20 Penicillin Vk 500 mg PO Q8HR 06/05/20 06/05/20 No122/Iron/Folic Acid 1 each PO DAILY 06/05/20 06/05/20 [ Multi Tablet] - Allergies Allergies/Adverse Reactions: Allergies Allergy/AdvReac Type Severity Reaction Status Date / Time No Known Drug Allergies Allergy Verified 06/05/20 09:18 - Social History Does the pt smoke?: No Smoking Status: Current some day smoker Does the pt drink ETOH?: Yes Does the pt have substance abuse?: No - Immunizations Immunizations are current?: Yes PD ED PE NORMAL - Vitals Vital signs reviewed: Yes (Febrile tachycardic and hypertensive) - General General: Alert and oriented X 3, No acute distress, Well developed/nourished - HEENT HEENT: Atraumatic, PERRL, EOMI, Ears normal, Other (Mucous membranes are dry the tonsils are 2+ cryptic and exudative on the right 1+ cryptic without exudate on the left) - Neck Neck: Supple, no meningeal sign, No bony TTP - Cardiac Cardiac: No murmur, Other (Tachycardia to 120) - Respiratory Respiratory: No respiratory distress, Clear bilaterally - Abdomen Abdomen: Soft, Non tender - Back Back: No CVA TTP, No spinal TTP - Derm Derm: Normal color, Warm and dry, No rash - Extremities Extremities: No deformity, No edema - Neuro Neuro: Alert and oriented X 3, building maintenance engineer 2-12 intact, No motor deficit, No sensory deficit, Normal speech Eye Opening: Spontaneous Motor: Obeys Commands Verbal: Oriented GCS Score: 15 - Psych Psych: Normal mood, Normal affect Results - Vitals Vitals: Vital Signs - 24 hr 06/05/20 06/05/20 09:18 09:30 Temperature 38.0 C H Heart Rate 117 H 112 H Respiratory 18 18 Rate Blood Pressure 130/88 H 131/84 H O2 Saturation 97 98 Oxygen O2 Source Room air - Labs Labs: Laboratory Tests 06/05/20 06/05/20 06/05/20 10:20 10:30 10:30 WBC 12.6 H RBC 3.96 L Hgb 9.6 L Hct 31.5 L MCV 79.5 L MCH 24.2 L MCHC 30.5 L RDW 17.0 H Plt Count 394 MPV 9.0 Neut # (Auto) 8.5 H Lymph # (Auto) 2.4 [place] # (Auto) 1.3 H Eos # (Auto) 0.1 Baso # (Auto) 0.1 Absolute Nucleated RBC 0.00 Nucleated RBC % 0.0 Sodium 133 L Potassium 3.6 Chloride 95 L Carbon Dioxide 27 Anion Gap 11.0 BUN 10 Creatinine 1.1 H Estimated GFR (MDRD) 72 L Glucose 102 H Calcium 8.9 Total Bilirubin 0.7 AST 19 ALT 23 Alkaline Phosphatase 66 Total Protein 7.3 Albumin 3.5 Globulin 3.8 Albumin/Globulin Ratio 0.9 L Lipase 30 Urine Color YELLOW Urine Clarity CLEAR Urine pH 7.0 Ur Specific [place] 1.010 Urine Protein NEGATIVE Urine Glucose (UA) NEGATIVE Urine Ketones NEGATIVE Urine Occult Blood NEGATIVE Urine Nitrite NEGATIVE Urine Bilirubin NEGATIVE Urine Urobilinogen 0.2 (NORMAL) Ur Leukocyte Esterase NEGATIVE Ur Microscopic Review NOT INDICATED Urine Culture Comments NOT INDICATED Urine HCG, Qual NEGATIVE PD MEDICAL DECISION MAKING - ED course Complexity details: considered differential, d/w patient ED course: 25-year-old female with strep pharyngitis has cryptic exudative tonsils and here in the emergency department she appears dehydrated she has not improved on 5 days of penicillin VK and we will change her to Augmentin. She is administered a liter of fluid and 10 mg of dexamethasone. Departure - Departure Disposition: 01 Home, Self Care Clinical Impression: Acute bacterial tonsillitis Condition: Stable Instructions: ED Tonsillitis Follow-Up: PENEL[facility] [Provider Group] Prescriptions: Amox/Clav 875/125 [Augmentin] 1 each PO Q12H #20 tablet
[2020-06-05 11:16] VITALS: BP 123/73
== END 2020-06-05 11:23 | disposition home or self-care (01) ==
LOC: ED 09:07
DX: J03.00 Acute streptococcal tonsillitis, unspecified (principal); E86.0 Dehydration
CPT/HCPCS: 36415; 80053; 81001; 81003; 81025; 83690; 85025; 87086; 96374; 99284

== ENCOUNTER 2020-11-29 15:41 | Emergency (ER) | payer OTHER ==
[2020-11-29 16:22] LABS: MUDS CUTOFF CONCENTRATIONS CUTOFF CONC BELOW:
[2020-11-29 16:25] LABS: BASOPHILS % (AUTO) 0.8 %; EOSINOPHILS # (AUTO) 0.3 10^3/uL (0.0-0.7); EOSINOPHILS % (AUTO) 5.1 %; HCT - HEMATOCRIT 33.7 % (37.0-47.0); HGB - HEMOGLOBIN 9.6 g/dL (12.0-16.0); LYMPHOCYTES # (AUTO) 2.3 10^3/uL (1.5-3.5); MEAN CORPUSCULAR HEMOGLOBIN 22.7 pg (27.0-31.0); MEAN CORPUSCULAR HGB CONC 28.5 g/dL (32.0-36.0); MEAN CORPUSCULAR VOLUME 79.7 fL (81.0-99.0); MEAN PLATELET VOLUME 9.4 fL (7.9-10.8); MONOCYTES # (AUTO) 0.6 10^3/uL (0.0-1.0); MONOCYTES % (AUTO) 11.2 %; NEUTROPHILS # (AUTO) 1.9 10^3/uL (1.5-6.6); NEUTROPHILS % (AUTO) 37.7 %; PLT - PLATELET COUNT 288 10^3/uL (130-450); RED BLOOD COUNT 4.23 10^6/uL (4.20-5.40); RED CELL DISTRIBUTION WIDTH 15.9 % (12.0-15.0); WHITE BLOOD COUNT 5.1 x10^3/uL (4.8-10.8)
[2020-11-29 16:27] LABS: BILIRUBIN,URINE NEGATIVE (NEGATIVE); GLUCOSE, URINE (UA) NEGATIVE (NEGATIVE); KETONES,URINE (UA) NEGATIVE (NEGATIVE); LEUKOCYTE ESTERASE, URINE NEGATIVE (NEGATIVE); NITRITE,URINE NEGATIVE (NEGATIVE); OCCULT BLOOD,URINE NEGATIVE (NEGATIVE); PH,URINE 7.5 PH (5.0-7.5); PROTEIN,URINE NEGATIVE (NEGATIVE); UROBILINOGEN,URINE 0.2 (NORMAL) E.U./dL (NORMAL)
[2020-11-29 16:30] LABS: SLIDE REVIEW? Indicated
[2020-11-29 16:34] LABS: CLARITY,URINE CLEAR (CLEAR); HCG UR QUAL NEGATIVE
[2020-11-29 16:35] LABS: AMPHETAMINE SCREEN,URINE NEGATIVE (NEGATIVE); BARBITURATE SCREEN,UR NEGATIVE (NEGATIVE); BENZODIAZEPINES SCREEN, URINE NEGATIVE (NEGATIVE); COCAINE SCREEN URINE NEGATIVE (NEGATIVE); METHADONE SCREEN, URINE NEGATIVE (NEGATIVE); METHAMPHETAMINES SCREEN, URINE NEGATIVE (NEGATIVE); OPIATE SCREEN, URINE NEGATIVE (NEGATIVE); OXYCODONE SCREEN, URINE NEGATIVE (NEGATIVE); PROPOXYPHENE SCREEN, URINE NEGATIVE (NEGATIVE); THC CANNABINOID SCREEN, URINE NEGATIVE (NEGATIVE); TRICYCLIC ANTIDEPRESSANT,URINE NEGATIVE (NEGATIVE)
[2020-11-29 16:40] LABS: ACETAMINOPHEN < 10 ug/mL (10-30); ALBUMIN 3.8 g/dL (3.2-5.5); ALBUMIN/GLOBULIN RATIO 1.1 (1.0-2.2); ALKALINE PHOSPHATASE 69 IU/L (42-121); ALT ALANINE AMINOTRANSFERASE 13 IU/L (10-60); AST ASPARTATE AMINOTRANSFERASE 14 IU/L (10-42); BILIRUBIN,TOTAL 0.7 mg/dL (0.2-1.0); BUN - BLOOD UREA NITROGEN 13 mg/dL (6-20); CALCIUM 8.5 mg/dL (8.5-10.3); CARBON DIOXIDE - CO2 26 mmol/L (21-32); CHLORIDE 102 mmol/L (101-111); CREATININE 0.9 mg/dL (0.4-1.0); ETOH - ETHANOL < 5.0 mg/dL; GFR - MDRD 91 (>89); GLUCOSE 117 mg/dL (70-100); LIPASE 30 U/L (22-51); SALICYLATE < 6.0 mg/dL; SODIUM 139 mmol/L (135-145); TOTAL PROTEIN 7.2 g/dL (6.7-8.2)
[2020-11-29 16:53] LABS: PLATELET ESTIMATE, MANUAL NORMAL (130-450,000) (NORMAL); PLATELET MORPHOLOGY NORMAL APPEARANCE (NORMAL); RBC MORPHOLOGY (MULTIPLE) 1+ HYPOCHROMASIA (NORMAL); WBC MORPHOLOGY (MULTIPLE) NORMAL APPEARANCE (NORMAL)
--- NOTE | 2020-11-29 18:58 | ED Physician Documentation ---
History of Present Illness - Stated complaint Stated Complaint: MHE - Chief complaint Chief Complaint: MHE - Additonal information Additional information: 25-year-old female presents emergency department for evaluation of anxiety, depression and suicidal thoughts. Reports longstanding history of depression and anxiety and his gotten acutely worse especially since the of her baby 8 months ago. This morning she woke up feeling listless and inside. She did go to a GI appointment and as she was driving back she had thoughts of driving into a bank. She had previously [place] has found this unfruitful and has been referred to an outpatient service but has not yet made contact with the social service technician or the provider there. She has not been medicated for depression or anxiety in the past. At this time she does not desire hospitalization. She denies that she wants to harm herself right now she would like to be discharged home to her and baby. She denies alcohol tobacco or any drug use. No previous history of suicidal attempt. Review of Systems Constitutional: reports: Reviewed and negative Ears: reports: Reviewed and negative Nose: reports: Reviewed and negative Cardiac: reports: Reviewed and negative Respiratory: reports: Reviewed and negative : reports: Reviewed and negative Skin: reports: Reviewed and negative Musculoskeletal: reports: Reviewed and negative Neurologic: reports: Reviewed and negative Psychiatric: reports: Depressed, Anxiety, Insomnia. 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 HELPER: section - Present Medications Home Medications: Ambulatory Orders Medication Instructions Recorded Confirmed Acetaminophen [Tylenol] 650 mg PO Q6H PRN #90 tablet 03/30/20 06/05/20 Amox/Clav 875/125 [Augmentin] 1 each PO Q12H #20 tablet 06/05/20 Penicillin Vk 500 mg PO Q8HR 06/05/20 06/05/20 No122/Iron/Folic Acid 1 each PO DAILY 06/05/20 06/05/20 [ Multi Tablet] hydrOXYzine pamoate [Hydroxyzine 25 mg PO TID PRN #15 07/22/21 Pamoate] - Allergies Allergies/Adverse Reactions: Allergies Allergy/AdvReac Type Severity Reaction Status Date / Time No Known Drug Allergies Allergy Verified 11/29/20 16:11 - Social History Does the pt smoke?: No Smoking Status: Current some day smoker Does the pt drink ETOH?: Yes Does the pt have substance abuse?: No - Immunizations Immunizations are current?: Yes PD ED PE EXPANDED - General General: Alert, No acute distress - Cardiac Cardiac: Regular Rate, Radial strong equal, Pedal strong equal. No: Murmur Present - Respiratory Respiratory: Clear to ausultation rona. No: Distress, Labored - Abdomen Abdomen: Normal Bowel sounds. No: Tender to palpation - Neuro Neuro: Alert and Oriented X 3, CNII-XII intact - GCS Eye Opening: Spontaneous Motor: Obeys Commands Verbal: Oriented Total: 15 - Psych Psych: Normal, Anxious, Other (Endorsed that she had suicidal thoughts earlier in the day but none now. She does not wish to harm herself or anybody else. She is somewhat tearful in conversation makes good eye contact and is able to express herself freely.). No: Poor eye contact, Manic, Pressured speech, Flight of ideas, Auditory hallucinations Results - Vitals Vitals: Vital Signs - 24 hr 11/29/20 16:03 Temperature 36.9 C Heart Rate 100 Respiratory 18 Rate Blood Pressure 144/95 H O2 Saturation 97 Oxygen O2 Source Room air - Labs Labs: Laboratory Tests 11/29/20 11/29/20 11/29/20 16:16 16:20 16:20 WBC 5.1 RBC 4.23 Hgb 9.6 L Hct 33.7 L MCV 79.7 L MCH 22.7 L MCHC 28.5 L RDW 15.9 H Plt Count 288 MPV 9.4 Neut # (Auto) 1.9 Lymph # (Auto) 2.3 [place] # (Auto) 0.6 Eos # (Auto) 0.3 Baso # (Auto) 0.0 Absolute Nucleated RBC 0.00 Nucleated RBC % 0.0 Manual Slide Review Indicated WBC Morphology NORMAL APPEARANCE Platelet Estimate NORMAL (130-450,000) Platelet Morphology NORMAL APPEARANCE RBC Morph Micro Appear 1+ HYPOCHROMASIA Sodium 139 Potassium 4.0 Chloride 102 Carbon Dioxide 26 Anion Gap 11.0 BUN 13 Creatinine 0.9 Estimated GFR (MDRD) 91 Glucose 117 H Calcium 8.5 Total Bilirubin 0.7 AST 14 ALT 13 Alkaline Phosphatase 69 Total Protein 7.2 Albumin 3.8 Globulin 3.4 Albumin/Globulin Ratio 1.1 Lipase 30 TSH Urine Color YELLOW Urine Clarity CLEAR Urine pH 7.5 Ur Specific [place] 1.020 Urine Protein NEGATIVE Urine Glucose (UA) NEGATIVE Urine Ketones NEGATIVE Urine Occult Blood NEGATIVE Urine Nitrite NEGATIVE Urine Bilirubin NEGATIVE Urine Urobilinogen 0.2 (NORMAL) Ur Leukocyte Esterase NEGATIVE Ur Microscopic Review NOT INDICATED Urine Culture Comments NOT INDICATED Urine HCG, Qual NEGATIVE Salicylates < 6.0 Urine Opiates Screen NEGATIVE Ur Oxycodone Screen NEGATIVE Urine Methadone Screen NEGATIVE Ur Propoxyphene Screen NEGATIVE Acetaminophen < 10 L Ur Barbiturates Screen NEGATIVE Ur Tricyclics Screen NEGATIVE Ur Phencyclidine Scrn NEGATIVE Ur Amphetamine Screen NEGATIVE U Methamphetamines Scrn NEGATIVE U Benzodiazepines Scrn NEGATIVE Urine Cocaine Screen NEGATIVE U Cannabinoids Screen NEGATIVE Ethyl Alcohol < 5.0 11/29/20 16:20 WBC RBC Hgb Hct MCV MCH MCHC RDW Plt Count MPV Neut # (Auto) Lymph # (Auto) [place] # (Auto) Eos # (Auto) Baso # (Auto) Absolute Nucleated RBC Nucleated RBC % Manual Slide Review WBC Morphology Platelet Estimate Platelet Morphology RBC Morph Micro Appear Sodium Potassium Chloride Carbon Dioxide Anion Gap BUN Creatinine Estimated GFR (MDRD) Glucose Calcium Total Bilirubin AST ALT Alkaline Phosphatase Total Protein Albumin Globulin Albumin/Globulin Ratio Lipase TSH 0.34 Urine Color Urine Clarity Urine pH Ur Specific [place] Urine Protein Urine Glucose (UA) Urine Ketones Urine Occult Blood Urine Nitrite Urine Bilirubin Urine Urobilinogen Ur Leukocyte Esterase Ur Microscopic Review Urine Culture Comments Urine HCG, Qual Salicylates Urine Opiates Screen Ur Oxycodone Screen Urine Methadone Screen Ur Propoxyphene Screen Acetaminophen Ur Barbiturates Screen Ur Tricyclics Screen Ur Phencyclidine Scrn Ur Amphetamine Screen U Methamphetamines Scrn U Benzodiazepines Scrn Urine Cocaine Screen U Cannabinoids Screen Ethyl Alcohol PD MEDICAL DECISION MAKING - ED course Complexity details: reviewed results, re-evaluated patient, d/w patient ED course: 25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 She was driving back from a medical appointment and had thoughts of driving into an embankment or off the bridge. At this time patient easily contracts for safety. She was offered the option of hospitalization at [facility] but she declines this and she would at this point be involuntary. She does seem safe for discharge home. She is requesting some medication to help with anxiety and I will prescribe her hydroxyzine. I will also give her local mental health resources that take [employer] insurance. She will check in with mental health [place] tomorrow in the morning and her chief is here in the ER and agrees to the plan. Emergent return precautions were discussed for worsening symptoms. Departure - Departure Disposition: Home, Self Care Clinical Impression: Anxiety Depression Qualifiers: Depression Type: other depression Qualified Code(s): F32.89 - Other specified depressive episodes Condition: Stable Record reviewed to determine appropriate education?: Yes Prescriptions: hydrOXYzine pamoate [Hydroxyzine Pamoate] 25 mg PO TID PRN #15 PRN Reason: Anxiety Comments: You were seen in the ER today for anxiety and depression. I have written a prescription for hydroxyzine which can help with the anxiety. It is important that you follow-up with mental health [place] tomorrow in the morning even though they will not be your long-term providers. If at any point you ever feel unsafe, have thoughts of self-harm please return immediately to the ER we can help you and will get to the right help. We want you to be safe. [facility] psychological services is a place in [place] that can take and they do have therapist there that can help you manage your anxiety and depression as well as make medication recommendations. [facility] [address], [place] [address] < [address]
[2020-11-29 19:21] VITALS: BP 143/87
== END 2020-11-29 19:26 | disposition home or self-care (01) ==
LOC: ED 15:41
DX: F41.9 Anxiety disorder, unspecified (principal); F32.89 Other specified depressive episodes; F17.200 Nicotine dependence, unspecified, uncomplicated
CPT/HCPCS: 36415; 80053; 80306; 80307; 80320; 80329; 81001; 81003; 81025; 83690; 84443; 85025; 87086; 99283; 99284

== ENCOUNTER 2022-01-14 14:25 | Outpatient (CLI) | payer OTHER ==
[2022-01-14 14:56] VITALS: BP 132/88
--- NOTE | 2022-01-14 14:56 | SLEEP CARE CONSULTATION ---
Information from patient questionnaire entered by Brandon Henson. I have reviewed and concur with the information entered by Brandon Henson. This document represents the service I personally performed and the decisions made by me, Archana Sullivan ARNP. History of Present Illness Service Date and Time: 01/14/2022 1425 Reason for follow up: annual (LAST SEEN 01/2020, NO CPAP) HPI additional information: IVAN DENG was last seen in 2021 for evaluation for sleep disordered breathing. She was not found to have sleep disordered breathing with an average AHI of 4.3, alan oxygen saturation of 90% but an elevated supine AHI of 7.0. Patient did not return for a follow up after completing sleep study in 01/2022. She returns today for a follow-up. The patient tells me that she normally goes to bed around 9-9:30 pm, and it takes her approximately 1-1.5 hours to fall asleep. She has been told that she snores loudly and irregularly at night. She has been observed to stop breathing in her sleep. Her bed partner can still sleep in the same bed. She can recall waking up on the average of 2-3 times during the night. Most of the time she wakes up because of snoring, bathroom and/ or daughter will crawl in bed. It takes about 30 minutes to fall back to sleep. She has occasionally awakened for her own snoring. There is a lot of tossing and turning in her sleep. Generally she can recall having dreams. She usually wakes up at 4-6 AM and does not feel refreshed. She usually does have a morning headache about 1 time a month. During the day she complains of feeling sleepy and fatigued. She has never fallen asleep while driving nor has any accident due to sleepiness. She usually does not take naps during the day. If she naps, upon falling asleep during the day she denies having vivid dreams. She reports having impaired concentration during the day. There is no somniloquy (sleep talking) but no somnambulism (sleep walking). She has never experienced sleep paralysis, cataplexy, or symptoms of restless leg syndrome. Subjective Initial [place] Sleepiness Scale score: 16 Current [place] Sleepiness Scale score: 17 (01/14/22) Allergies and Home Medications Home medication list reviewed: Yes (no changes) Allergy and home medication list: Allergies No Known Drug Allergies Allergy (Verified 11/29/20 16:11) Review of Systems Review of systems same as previous: Yes (no changes) Physical Exam Vital signs obtained and entered by: KYLE, SENIOR QUALITY ENGINEER Blood Pressure: 132/88 (LEFT ARM) Cuff size: regular Heart Rate: 85 O2 Saturation: 97 Height: 5 ft 4 in Weight: 228 lb Weight change since last visit: has lost 30 lbs since having baby 2 years ago Body Mass Index: 39.1 BMI Classification: Obese Impression and Plan 1. Suspected Obstructive Sleep Apnea-Hypopnea Syndrome, as suggested by a history of loud and irregular snoring, observed cessation of breath while asleep, morning headache, frequent awakening during the night, unrefreshed sleep, and excessive daytime sleepiness. Patient had a previous sleep study in 2019 when she was 6-7 months . Her average AHI was 4.3 with a supine AHI of 7.0. She states she continues to have symptoms and they do not seem to be improving. She states she has lost 30 pounds since her . I recommend proceeding to polysomnography to confirm the diagnosis and to assess severity. I obtained agreement to proceed. The pathophysiology of obstructive sleep apnea-hypopnea syndrome was discussed with the patient and health risks of cardiovascular and cerebrovascular disease if not treated. Risks of drowsy driving discussed in detail and patient advised to avoid long distance driving and to veneer puller at the first sign of drowsiness. Patient agreed to plan. * Schedule polysomnography * Avoid long distance driving or driving when feeling sleepy. * Avoid alcohol, sedative and muscle relaxant around bedtime. * Attempt to lose weight. * Review instructions provided by trained office staff on how to prepare for the sleep study. * Return for follow-up after sleep study completed. Counseling Topics: Weight loss health impact Visit Type: In Office Time Spent with Patient (minutes): 23 Provider Statement: I spent 100% of the Face to Face Visit with the patient with greater than 50% spent counseling the patient and coordination of care.
== END 2022-01-14 14:26 | disposition home or self-care (01) ==
LOC: SC 14:25
PROVIDERS: ATTEND Nurse Practitioner Family
DX: R06.83 Snoring (principal); G47.8 Other sleep disorders; R06.81 Apnea, not elsewhere classified; G47.10 Hypersomnia, unspecified; R53.83 Other fatigue; F32.A Depression, unspecified; E66.9 Obesity, unspecified; Z68.39 Body mass index [BMI] 39.0-39.9, adult
CPT/HCPCS: 99203; 99212

== ENCOUNTER 2022-01-27 20:35 | Outpatient (CLI) | payer OTHER | END 2022-01-27 20:36 | disposition home or self-care (01) | LOC: SC 20:35 | PROVIDERS: ATTEND Nurse Practitioner Family | DX: G47.33 Obstructive sleep apnea (adult) (pediatric) (principal) | CPT/HCPCS: 95810 ==

== ENCOUNTER 2022-03-19 11:18 | Outpatient (CLI) | payer OTHER ==
[2022-03-19 12:00] VITALS: BP 138/80
--- NOTE | 2022-03-19 12:00 | SLEEP CARE CONSULTATION ---
Information from patient questionnaire entered by Celine Chin. I have reviewed and concur with the information entered by Celine Chin. This document represents the service I personally performed and the decisions made by me, Archana Sullivan ARNP. History of Present Illness Service Date and Time: 03/19/2022 1118 Initial [place] Sleepiness Scale score: 16 Current [place] Sleepiness Scale score: 16 (03/19/2022) Additional HPI information: IVAN DENG returns for follow up and results of the recently performed polysomnography. I explained the pathophysiology behind obstructive sleep apnea. We then spent quite a bit of time discussing different treatment options. For mild obstructive sleep apnea, surgery and oral appliance are alternatives to nasal CPAP therapy but in moderate or severe cases, nasal CPAP is the most effective and reliable treatment. I reviewed the impact of weight changes on sleep apnea and strongly recommended losing weight. After some discussion, the patient opted to go with the nasal CPAP therapy. Nasal autoCPAP set at 4-15 cmH20 will be ordered with rationale explained. A manual titration study will be ordered if unable to find optimal pressure with office adjustments. I explained how CPAP machine works and what to expect when using the machine. Using CPAP every night in order to get used to it was emphasized. Patient advised to put CPAP mask on before getting into bed so as not to fall asleep without CPAP. To assist acclimation to CPAP use, it could also be used for a short time during day while reading or watching TV. The patient was instructed to call the CPAP supplier to discuss any mechanical problem that may occur. If the mask given is uncomfortable or is difficult to keep on through the night even with adjustment, contact the CPAP supplier as many will replace with another mask style if notified before 30 days. If snoring or perceives is not getting enough air or too much air from the machine, notify this office. Patient counseled not drink alcohol less than 4 hours before bedtime as it can increase snoring and apnea. Patient was cautioned about risks of drowsy driving until sleepiness symptoms resolve. Sleep Study - Results Type of Sleep Study: Polysomnography (01/27/2022) Polysomnography/Home Sleep Study results: IMPRESSION: The quality of the study is good. The patient had normal sleep efficiency. The sleep architecture was abnormal for sleep fragmentation and reduced amount of time spent in REM sleep. Respiratory monitoring showed mild obstructive sleep apnea-hypopnea (AHI = 13.3) associated with frequent arousals, oxyhemoglobin desaturation and mild hypoxia (alan oxygen saturation of 82%). The respiratory events occurred mainly during REM sleep (supine AHI = 13.4; non-supine = 18.46). Snore was light in intensity. There was no significant periodic leg movement of sleep. Cardiac rhythm was normal sinus rhythm without significant arrhythmia. No abnormal behavior (parasomnia) observed during the night. Allergies and Home Medications Drug allergies reviewed: Yes (NKDA) Home medication list reviewed: Yes (no changes) Review of Systems Review of systems same as previous: Yes (no changes) Physical Exam Vital signs obtained and entered by: CELINE Yi MA Blood Pressure: 138/80 (LEFT ARM) Cuff size: regular Heart Rate: 78 O2 Saturation: 96 Height: 5 ft 4 in Weight: 228 lb (measured at last visit) Body Mass Index: 39.1 BMI Classification: Obese Impression and Plan 1. Obstructive Sleep Apnea-Hypopnea Syndrome, mild, with lowest oxygen saturation of 82%. Obviously this is the cause of the patients symptoms of unrefreshed sleep, and excessive daytime sleepiness. Positive pressure therapy could benefit anxiety, depression, mood disorder, asthma and gastric reflux. As mentioned above, the patient will be started on nasal autoCPAP therapy with pressure set at 4-15 cmH2O. Compliance guidelines also reviewed. A copy of compliance guidelines will be given for reference at check out. 2. Hypoxemia, mild, with a alan oxygen saturation of 82% and 2.9 minutes spent under 90%. Her baseline oxygen saturation was normal with an average oxygen saturation of 94%. 2. Obesity, unspecified. Currently patients BMI is 39.1. Obesity increases the risk of apnea, CPAP pressure requirements and overall health risks especially cardiovascular and diabetes. Thus patient is advised to lose weight. * Nasal auto CPAP therapy, pressure at 4-15 cm H2O. * Attempt to lose weight. * Avoid alcohol consumption near bedtime. * Avoid supine sleep until using CPAP. * The patient is again cautioned about driving until sleepiness completely resolves. * Return one month after CPAP obtained. I will assess response to therapy and compliance at that time. Counseling Topics: Weight loss health impact Visit Type: In Office Time Spent with Patient (minutes): 20 Provider Statement: I spent 100% of the Face to Face Visit with the patient with greater than 50% spent counseling the patient and coordination of care.
== END 2022-03-19 11:19 | disposition home or self-care (01) ==
LOC: SC 11:18
PROVIDERS: ATTEND Nurse Practitioner Family
DX: G47.33 Obstructive sleep apnea (adult) (pediatric) (principal); R09.02 Hypoxemia; E66.9 Obesity, unspecified; Z68.39 Body mass index [BMI] 39.0-39.9, adult
CPT/HCPCS: 99212; 99213